=== PATIENT | male | born 1985 | race Caucasian/White ===

== ENCOUNTER 2019-11-16 14:20 | Emergency (ER) | payer OTHER, SELFPAY ==
[2019-11-16 14:31] VITALS: BP 132/73; PULSE 77; RESP 16; TEMP 37.7; O2SAT 99
--- NOTE | 2019-11-16 14:33 | ED.DENTAL ---
HPI - Dental/Oral General Chief complaint: Dental/Oral Stated complaint: Tooth pain Time Seen by Provider: 11/16/19 14:37 Source: patient and RN notes reviewed History of Present Illness HPI Narrative: Patient is a 34-year-old male who presents the urgent care with complaints of dental pain. Patient states that 2 days ago he bit down on something and broke off the lower right tooth. Patient states that he has had a bad taste in his mouth with a little bit of nausea but otherwise denies any fever or vomiting. Patient has had 26 teeth pulled in the past and will follow-up for this tooth as well. No other acute complaints. No acute distress noted. Patient read the plan of care. Related Data Allergies Allergy/AdvReac Type Severity Reaction Status Date / Time ketorolac Allergy Intermediate Weakness Verified 06/08/16 16:31 Bleach (Sodium Hypochlorite) Allergy Unknown Verified 03/26/15 14:18 ibuprofen Allergy Unknown Verified 03/26/15 14:18 No Known Allergies Allergy Unknown Unverified 01/30/19 13:18 No Known Allergies Allergy Uncoded 01/30/19 13:18 Review of Systems Review of Systems: Narrative: CONSTITUTIONAL: Denies fever, chills, or sweats. EYES: Denies visual changes, redness, or discharge. ENT: Denies rhinorrhea, congestion, sore throat, or otalgia. Reports of lower right dental pain CARDIOVASCULAR: Denies chest pain, palpitations, or edema. RESPIRATORY: Denies cough or dyspnea. GASTROINTESTINAL: Denies abdominal pain, nausea, vomiting, or diarrhea. GENITOURINARY: Denies dysuria or hematuria. SKIN: Denies rash or itching. MUSCULOSKELETAL: Denies back pain, joint pain, or myalgia. NEUROLOGIC: Denies headache, numbness, or weakness. All other systems reviewed are negative, except as documented in HPI. [facility] Family History Family History (Updated 12/13/13 @ 07:13 by DOCTOR UNKNOWN) Father Family history of lung cancer Family history of heart disease in male family member before age 55 Other Cerebrovascular accident Family history of malignant neoplasm Social History Social History Smoking status: Never smoker Alcohol intake: never Comments At the time of my signature, I reviewed and agree with the nursing past medical, surgical, social, and family history. There is no relevant family history pertinent to the patient complaint. Exam Narrative: Exam Narrative: GENERAL: This is a well-nourished, well-developed patient, in no apparent distress. HEAD: normocephalic, atraumatic. EYES: PERRL. Sclera clear/white. Vision is grossly intact. EARS: External ears normal NOSE: External nose normal with no obvious nasal discharge, nares without redness, no rhinorrhea. THROAT: Mucous membranes moist, posterior pharynx clear. DENTAL: Lower right first premolar notably avulsed with large caries and mild surrounding erythema along the gumline. NECK: Neck supple SKIN: warm, intact with no suspicious lesions or rash, good texture and turgor. NEURO: awake, alert, and oriented to person, place and time. There were no obvious focal neurologic abnormalities. EXTREMITIES: No clubbing, cyanosis, or edema. Course Vital Signs Vital signs: Vital Signs Temperature 99.8 F H 11/16/19 14:31 Pulse Rate 77 11/16/19 14:31 Respiratory Rate 16 11/16/19 14:31 Blood Pressure 132/73 11/16/19 14:31 Pulse Oximetry 99 11/16/19 14:31 Temperature 99.8 F H 11/16/19 14:31 Pulse Rate 77 11/16/19 14:31 Respiratory Rate 16 11/16/19 14:31 Blood Pressure 132/73 11/16/19 14:31 Pulse Oximetry 99 11/16/19 14:31 Reviewed MDM - Dental/Oral MDM Narrative Medical decision making narrative: Advised the patient to complete oral antibiotic regimen as prescribed. Use Tylenol as needed for pain. May use ice to the lower jaw as needed for comfort. If you develop any severe facial swelling associated with fever, nausea, vomiting?go to the emergency room. Follow-up at the dental clinic for further evaluation and treatmen
== END 2019-11-16 14:54 | disposition home or self-care (01) ==
PROVIDERS: Emergency Provider Nurse Practitioner Family; PCP Internal Medicine
DX: K04.7 Periapical abscess without sinus (principal); K02.9 Dental caries, unspecified
CPT/HCPCS: 99213; G0463

== ENCOUNTER 2019-11-26 06:03 | Emergency (ER) | payer OTHER, SELFPAY ==
[2019-11-26 06:05] VITALS: BP 135/77; PULSE 74; RESP 15; TEMP 36.3; O2SAT 100
--- NOTE | 2019-11-26 06:23 | ED.MALEGU ---
HPI - Male Genitourinary General Chief complaint: Urogenital-Male <Julia Langford MD - Last Filed: 11/29/19 07:35> Stated complaint: Difficulty Urinating <Julia Langford MD - Last Filed: 11/29/19 07:35> Time Seen by Provider: 11/26/19 06:06 <Julia Langford MD - Last Filed: 11/29/19 07:35> History of Present Illness HPI Narrative: Patient presents to the ED with the feeling that he has incomplete emptying when he goes to urinate. He says is difficult for him to urinate. There is no pain with urination. He denies risk of sexually transmitted disease. He has not been sick. He has a history of left ACL knee repair. Smokes cigarettes and smokes marijuana, does not drink alcohol. 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 <Julia Langford MD - Last Filed: 11/29/19 07:35> Onset (ago): hour(s) <Julia Langford MD - Last Filed: 11/29/19 07:35> Duration: constant <Julia Langford MD - Last Filed: 11/29/19 07:35> Location: abdomen (Pelvis and bladder) <Julia Langford MD - Last Filed: 11/29/19 07:35> Severity: moderate <Julia Langford MD - Last Filed: 11/29/19 07:35> Relieving factors: none <Julia Langford MD - Last Filed: 11/29/19 07:35> Exacerbating factors: none <Julia Langford MD - Last Filed: 11/29/19 07:35> Related Data Home medications: Home Medications Medication Instructions Recorded Confirmed No Home Medications 11/26/19 11/26/19 <Julia Langford MD - Last Filed: 11/29/19 07:35> Allergies/Adverse reactions: Allergies Allergy/AdvReac Type Severity Reaction Status Date / Time ketorolac Allergy Intermediate Weakness Verified 11/26/19 06:09 Bleach (Sodium Hypochlorite) Allergy Unknown Hives Verified 11/26/19 06:09 <Julia Langford MD - Last Filed: 11/29/19 07:35> Review of Systems Review of Systems: Narrative: CONSTITUTIONAL: Denies fever, chills, or sweats. EYES: Denies visual changes, redness, or discharge. ENT: Denies rhinorrhea, congestion, sore throat, or otalgia. CARDIOVASCULAR: Denies chest pain, palpitations, or edema. RESPIRATORY: Denies cough or dyspnea. GASTROINTESTINAL: Denies abdominal pain, nausea, vomiting, or diarrhea. GENITOURINARY: Denies dysuria or hematuria. Has a feeling that he cannot empty his bladder. SKIN: Denies rash or itching. MUSCULOSKELETAL: Denies back pain, joint pain, or myalgia. NEUROLOGIC: Denies headache, numbness, or weakness. <Julia Langford MD - Last Filed: 11/29/19 07:35> All systems reviewed & are unremarkable except as noted in HPI and below <Julia Langford MD - Last Filed: 11/29/19 07:35> PMFSH Past Medical History Medical History: Medical History Abnormal urination Smoking <Julia Langford MD - Last Filed: 11/29/19 07:35> Surgical History Surgical History: Surgical History (Updated 11/26/19 @ 06:25 by Julia Langford MD) History of repair of ACL <Julia Langford MD - Last Filed: 11/29/19 07:35> Family History Family History: Family History (Updated 12/13/13 @ 07:13 by DOCTOR UNKNOWN) Father Family history of lung cancer Family history of heart disease in male family member before age 55 Other Cerebrovascular accident Family history of malignant neoplasm <Julia Langford MD - Last Filed: 11/29/19 07:35> Social History Social History: Social History Smoking status: Never smoker Alcohol intake: never Gender identity (if verbalized by the patient): Male <Julia Langford MD - Last Filed: 11/29/19 07:35> Exam Narrative: Exam Narrative: GENERAL: Well-appearing, well-nourished, and in no acute distress. HEAD: Normocephalic, atraumatic. EYES: PERRLA and EOMI. ENT: Nares clear, no rhinorrhea or epistaxis. Mucous membranes moist. NECK: Supple. CHEST: Clear to auscultation. No respiratory distress. HEART: Regular rate and rhythm. No murmur heard. Normal peripheral pulses. ABDOMEN: Soft, nontend
[2019-11-26 06:47] LABS: Basophils Percent Auto 0.5 % (0.2-1.2); Eosinophils Absolute Auto 0.2 K/mm3 (0-0.3); Eosinophils Percent Auto 2.7 % (0-4.4); Hemoglobin 14.4 g/dL (14.0-18.0); Immature Granulocyte Absolute 0.04 K/mm3 (0.00-0.031); Immature Granulocyte Percent A 0.5 % (0-0.5); Lymphocytes Absolute Auto 1.72 K/mm3 (0.9-3.2); Lymphocytes Percent Auto 23.2 % (18.3-44.2); Mean Corpuscular HGB Conc 33.5 g/dl (32-36); Mean Corpuscular Hemoglobin 32.7 pg (26-34); Mean Corpuscular Volume 97.5 fl (80-100); Mean Platelet Volume 9.8 fl (7.4-10.4); Monocytes Absolute Auto 0.6 K/mm3 (0.1-0.6); Monocytes Percent Auto 8.5 % (2.6-8.5); Neutrophils Absolute Auto 4.8 K/mm3 (1.3-6.7); Neutrophils Percent Auto 64.6 % (45.5-73.1); Platelet Count Result 248 k/mm3 (150-375); Red Blood Count 4.41 M/mm3 (4.6-6.20); Red Cell Distribution Width 12.7 % (11.5-14.5); White Blood Count 7.4 K/mm3 (4.5-10.0)
[2019-11-26 06:59] LABS: Add Urine Microscopic? NO; Appearance Urine Clear (Clear); Bilirubin Urine Negative (Negative); Blood Urine Negative (Negative); Color Urine Yellow (Yellow); Glucose Urine UA Negative (Negative); Ketones Urine Negative (Negative); Leukocyte Esterase Ur Negative LEU/UL (Negative); Nitrate Urine Negative (Negative); Protein Urine Negative (Negative); Specific Grav Ur 1.015 (1.001-1.035); Urobilinogen Urine Negative mg/dL (<2.0)
[2019-11-26 07:04] LABS: Alanine Aminotransferase 16 U/L (4-50); Alkaline Phosphatase 69 U/L (38-126); Anion Gap 5 mmol/L (8-16); Aspartate Amino Transferase 22 U/L (17-59); Bilirubin,Total 0.2 mg/dL (0.2-1.3); Blood Urea Nitrogen 14 mg/dL (9-20); Calcium 8.7 mg/dL (8.4-10.2); Carbon Dioxide 28 mmol/L (22-30); Chloride 106 mmol/L (98-107); Estimated CRCL calculation 111 ml/min; Estimated Glomerular Filt Rate > 60; Glucose 92 mg/dL (75-110); Potassium 4.2 mmol/L (3.4-5.0); Sodium 139 mmol/L (137-145)
--- NOTE | 2019-11-26 07:09 | PC.NURSE ---
Report given to VAMSHI Bob.
== END 2019-11-26 07:16 | disposition home or self-care (01) ==
PROVIDERS: Emergency Medicine; Emergency Provider Emergency Medicine; PCP Internal Medicine
DX: R39.14 Feeling of incomplete bladder emptying (principal); F17.210 Nicotine dependence, cigarettes, uncomplicated
CPT/HCPCS: 36415; 80053; 81003; 85025; 99283

== ENCOUNTER 2020-05-27 16:30 | Emergency (ER) | payer OTHER, SELFPAY ==
--- NOTE | ~2020-05-27 | XR_ITS ---
EXAMINATION: XR abdomen/kub 1V DATE: 05/27/2020 17:05 INDICATION: Diffuse abdominal pain TECHNIQUE: A supine view of the abdomen on 2 radiographs was obtained. COMPARISON: CT dated 09/07/2018 FINDINGS: Moderate amount of stool scattered throughout the colon. No dilated gas-filled loops of bowel to sugg est obstruction. A few phleboliths in the pelvis. Visualized lung bases are clear. Bones are unremark able. IMPRESSION: 1. Normal bowel gas pattern. Reviewed, dictated and finalized at location A. 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
[2020-05-27 16:50] VITALS: BP 146/86; PULSE 108; RESP 16; TEMP 35.7; O2SAT 98
--- NOTE | 2020-05-27 17:00 | ED.ABDPAIN ---
HPI - Abdominal Pain General Chief Complaint: Abdominal Pain Stated Complaint: Abdominal pain Time Seen by Provider: 05/27/20 17:04 Source: patient and RN notes reviewed Mode of arrival: ambulatory Limitations: no limitations History of Present Illness HPI narrative: 35-year-old male presents with concern for abdominal pain, difficulty passing stool. Reports approximately 1 week ago he started having difficulty passing stool, reports a sensation of needing to defecate however the stool would not come out, he has to digitally remove stool. Reports abdominal pain has been increasingly worsening and spreading throughout the week, reports his urine output has decreased, he has dysuria and malodorous urine. Reports he is eating a normal diet, and drinking extra fluids. He denies fever, diarrhea. Reports he forced himself to vomit today in an attempt to relieve his abdominal pain. He denies any history of abdominal surgeries, past problems with his abdomen. Reports he is tried warm baths for pain relief MD elicited complaint: abdominal pain Related Data Home Medications Medication Instructions Recorded Confirmed No Home Medications 11/26/19 11/26/19 Allergies Allergy/AdvReac Type Severity Reaction Status Date / Time ketorolac Allergy Intermediate Weakness Verified 05/27/20 16:44 Bleach (Sodium Hypochlorite) Allergy Unknown Hives Verified 05/27/20 16:44 Review of Systems Review of Systems: Narrative: CONSTITUTIONAL: Denies malaise, chills, sweats, or fever. CARDIOVASCULAR: Denies chest pain, palpitations, or edema. RESPIRATORY: Denies cough or dyspnea. GASTROINTESTINAL: Reports generalized abdominal pain, constipation, vomiting. Denies nausea, diarrhea, bloody, or mucous stools. GENITOURINARY: Reports dysuria decreased urine frequency, foul odor. Denies hematuria. MUSCULOSKELETAL: Denies myalgia. All systems reviewed & are unremarkable except as noted in HPI and below PMFSH Past Medical History Medical History Abnormal urination Smoking Surgical History Surgical History (Updated 11/30/19 @ 08:03 by Douglas Patel DO) History of repair of ACL Family History Family History (Updated 12/13/13 @ 07:13 by DOCTOR UNKNOWN) Father Family history of lung cancer Family history of heart disease in male family member before age 55 Other Cerebrovascular accident Family history of malignant neoplasm Social History Social History Smoking status: Never smoker Alcohol intake: never Gender identity (if verbalized by the patient): Male Comments At time of signature, agree with nursing past medical, surgical, social and family history. There is no relevant family history pertinent to the presenting complaint Exam Narrative: Exam Narrative: GENERAL: Well-appearing, well-nourished, and in no acute distress. HEAD: Normocephalic, atraumatic. EYES: PERRLA, conjunctivae clear, and EOMI. ENT: Nares clear. Mucous membranes moist. NECK: Supple. No lymphadenopathy CHEST: Speaks in full sentences. No respiratory distress. HEART: Regular rate and rhythm. ABDOMEN: Soft, flat, nondistended. Guarding, right upper quadrant, right lower quadrant, periumbilical tenderness. No rebound tenderness, or rigid. No pulsatilla masses. Bowel sounds hypoactive in all four quadrants. No organomegaly. Negative Garcia?s sign. No Supra public tenderness or distension. Good femoral pulses bilaterally. No hernia noted. No scars or surface trauma. No testicular erythema, edema, tenderness SKIN: Warm, dry, no rash. NEURO: Alert and oriented x3. PSYCH: Normal mood and affect Course Course Emergency Course: Patient is aware of, understands and agrees to reasons to be seen in the emergency department. Offered EMS transfer, patient first transfer via private vehicle, patient is stable for transfer via private vehicle. Patient agrees to proceed directly to the emergency department.
== END 2020-05-27 17:23 | disposition short-term general hospital (02) ==
PROVIDERS: Emergency Provider Nurse Practitioner
DX: R10.84 Generalized abdominal pain (principal)
CPT/HCPCS: 74018; 81003; 99213; G0463

== ENCOUNTER 2020-05-27 17:55 | Emergency (ER) | payer OTHER, SELFPAY ==
--- NOTE | ~2020-05-27 | CT_ITS ---
EXAMINATION: CT abdomen pelvis w con DATE: 05/27/2020 19:31 INDICATION: Abdominal pain TECHNIQUE: Computed tomography (CT) of the abdomen and pelvis was performed with 100 mL Omnipaque-350 intravenous contrast. Automated exposure control and iterative reconstruction technique were employe d. The dose-length product was 250.34 mGy-cm. COMPARISON: 09/07/2018 FINDINGS: Lung bases are clear. Heart size is normal. No pericardial or pleural effusion. Liver, gallbladder, s pleen, pancreas, bilateral adrenal glands and kidneys are normal. Suggestion of diffuse mild colonic wall thickening suspicious for colitis. No bowel obstruction. Small bowel and appendix are normal. Bl adder is normal. No free intraperitoneal gas or fluid. No pathologically enlarged abdominal or pelvic lymphadenopathy. Mild likely physiologic anterior wedging at T11 and T12. IMPRESSION: 1. Diffuse mild colonic wall thickening suspicious for colitis which could be infectious, inflammator y or less likely given age and distribution, ischemic in etiology. Reviewed, dictated and finalized at location A. 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 Diffuse mild colonic wall thickening suspicious for colitis which could be i nfectious, inflammatory or less likely given age and distribution, ischemic in etiology.
[2020-05-27 18:02] VITALS: BP 135/86; PULSE 130; RESP 18; TEMP 37.4; O2SAT 100
[2020-05-27 18:15] LABS: Basophils Percent Auto 0.3 % (0.2-1.2); Eosinophils Percent Auto 0.1 % (0-4.4); Hematocrit 49.2 % (42.0-52.0); Hemoglobin 16.5 g/dL (14.0-18.0); Immature Granulocyte Absolute 0.04 K/mm3 (0.00-0.031); Immature Granulocyte Percent A 0.4 % (0-0.5); Lymphocytes Percent Auto 10.1 % (18.3-44.2); Mean Corpuscular HGB Conc 33.5 g/dl (32-36); Mean Corpuscular Hemoglobin 32.3 pg (26-34); Mean Corpuscular Volume 96.3 fl (80-100); Mean Platelet Volume 9.7 fl (7.4-10.4); Monocytes Absolute Auto 0.4 K/mm3 (0.1-0.6); Monocytes Percent Auto 3.3 % (2.6-8.5); Neutrophils Absolute Auto 9.4 K/mm3 (1.3-6.7); Neutrophils Percent Auto 85.8 % (45.5-73.1); Platelet Count Result 292 k/mm3 (150-375); Red Blood Count 5.11 M/mm3 (4.6-6.20); Red Cell Distribution Width 12.3 % (11.5-14.5); White Blood Count 10.9 K/mm3 (4.5-10.0)
[2020-05-27 18:22] LABS: Add Urine Microscopic? YES; Appearance Urine Clear (Clear); Bilirubin Urine Negative (Negative); Blood Urine Negative (Negative); Color Urine Yellow (Yellow); Glucose Urine UA Negative (Negative); Ketones Urine Negative (Negative); Leukocyte Esterase Ur Negative LEU/UL (Negative); Mucus Urine Heavy /lpf; Nitrate Urine Negative (Negative); Protein Urine 2+ mg/dL (Negative); RBC Urine 0-2 /hpf (0-2); Squamous Epithelial Cell Urine Rare /hpf (Few); Urobilinogen Urine Negative mg/dL (<2.0); WBC Urine 0-3 /hpf
[2020-05-27 18:24] LABS: Specific Grav Ur 1.031 (1.001-1.035)
[2020-05-27 18:26] LABS: Alanine Aminotransferase 17 U/L (4-50); Albumin Level 4.8 g/dL (3.5-5.1); Alkaline Phosphatase 92 U/L (38-126); Anion Gap 8 mmol/L (8-16); Aspartate Amino Transferase 23 U/L (17-59); Bilirubin,Total 0.6 mg/dL (0.2-1.3); Blood Urea Nitrogen 8 mg/dL (9-20); Calcium 9.9 mg/dL (8.4-10.2); Carbon Dioxide 30 mmol/L (22-30); Chloride 104 mmol/L (98-107); Estimated CRCL calculation 107 ml/min; Estimated Glomerular Filt Rate > 60; Glucose 122 mg/dL (75-110); Lipase 15 U/L (23-300); Potassium 4.2 mmol/L (3.4-5.0); Sodium 142 mmol/L (137-145)
--- NOTE | 2020-05-27 18:55 | ED.ABDPAIN ---
HPI - Abdominal Pain General Chief Complaint: Abdominal Pain Stated Complaint: abd pain Time Seen by Provider: 05/27/20 18:45 Source: patient History of Present Illness HPI narrative: Patient is a 35 y/o male complaining of right sided abdominal pain for 1 week. He describes his pain as burning and sharp. He rates his pain as 3/10. There is no pain radiation. He had one episode of vomiting. He has some difficulty with bowel movement at times. Related Data Allergies Allergy/AdvReac Type Severity Reaction Status Date / Time ketorolac Allergy Intermediate Weakness Verified 05/27/20 18:59 Bleach (Sodium Hypochlorite) Allergy Unknown Hives Verified 05/27/20 18:59 Review of Systems Constitutional: Constitutional: Denies chills, Denies fever(s), Denies headache(s) and Denies weakness Eyes: Eyes: Denies blurry vision ENT: Denies headache(s) and Denies neck pain Cardiovascular: Cardiovascular: Denies chest pain and Denies dyspnea Respiratory: Respiratory: Denies cough and Denies dyspnea Gastrointestinal: Gastrointestinal: Reports abdominal pain, Denies diarrhea, Reports nausea and Reports vomiting Genitourinary: Genitourinary: Denies hematuria and Denies dysuria Musculoskeletal: Musculoskeletal: Denies back pain and Denies neck pain Neurologic: Denies headache(s) and Denies weakness PMFSH Past Medical History Medical History Abnormal urination Smoking Surgical History Surgical History History of repair of ACL Family History Family History Father Family history of lung cancer Family history of heart disease in male family member before age 55 Other Cerebrovascular accident Family history of malignant neoplasm Social History Social History Smoking status: Never smoker Alcohol intake: never Gender identity (if verbalized by the patient): Male Exam Const: General: no acute distress and well developed Orientation/consciousness: oriented to person, oriented to place, oriented to time and patient oriented x3 HENMT: Head: normocephalic Ears: external ears normal General nose exam: Normal external nose present Eyes: General: appearance normal, both eyes and all related structures Conjunctivae: conjunctivae normal Neck: Neck: normal visual inspection and full ROM Chest: Chest palpation & inspection: normal inspection of the chest and no tenderness Resp: Effort & Inspection: normal respiratory effort Auscultation: clear to auscultation bilaterally Cardio: Rate: tachycardic Rhythm: regular rhythm GI: GI Palp: Yes abdominal tenderness (right upper quadrant) and Yes Soft to palpation Skin: General skin exam: normal color and turgor normal Neuro: General: oriented to person, oriented to place, oriented to time and patient oriented x3 Cognition (Neuro): normal cognition Extrem: General: normal to inspection, full ROM and no pedal edema Psych: Appearance: grossly normal Mental Status: mental status grossly normal Affect: normal affect Course Reevaluation(s) Reevaluation #1: Rechecked. Discussed with patient about labs and CT results. Offered patient admission for IV antibiotics. Patient declined and wants to be discharged. Date: 05/27/20 Time: 21:15 Vital Signs Vital signs: Vital Signs Temperature 37.4 C 05/27/20 18:02 Pulse Rate 130 H 05/27/20 18:02 Respiratory Rate 18 05/27/20 18:02 Blood Pressure 135/86 05/27/20 18:02 Pulse Oximetry 100 05/27/20 18:02 Temperature 36.8 C 05/27/20 21:49 Pulse Rate 96 05/27/20 21:49 Respiratory Rate 16 05/27/20 21:49 Blood Pressure 134/70 05/27/20 21:49 Pulse Oximetry 100 05/27/20 21:49 MDM - Abdominal Pain Lab Data Result diagrams: 05/27/20 18:09 05/27/20 18:09 Labs: Lab Results 05/27/20 05/27/20 05/27/20 Range/Units 18
[2020-05-27] MEDS: SODIUM CHLORIDE 0.9% IV 1,000 ML 999 ML IV CONT (19:08)
[2020-05-27] MEDS: DICYCLOMINE HCL INJ 20 MG/2 ML VIAL IM (19:09)
[2020-05-27] MEDS: ONDANSETRON INJ 4 MG/2 ML VIAL IV PUSH (20:22)
--- NOTE | 2020-05-27 20:28 | ECG_ITS ---
Measurements Intervals [place] Rate: 68 P: -26 MD: 121 QRS: 72 QRSD: 105 T: 59 QT: 355 QTc: 380 Interpretive Statements SINUS OR ECTOPIC ATRIAL RHYTHM BORDERLINE ST ABNORMALITY- LATERAL LEADS BASELINE ARTIFACT- AVR, AVL, AVF, V1 ABNORMAL ECG Electronically Signed On 05-28-2020 7:04:26 [employer]ENCH REPAIR TECHNICIAN by Rene Tee D.O.
[2020-05-27] MEDS: fentaNYL CITRATE INJ (*CRX) 100 MCG/2 ML VIAL 25 MCG IV PUSH (20:58)
[2020-05-27 21:49] VITALS: BP 134/70; PULSE 96; RESP 16; TEMP 36.8; O2SAT 100
[2020-05-27] MEDS: CIPROFLOXACIN 500 MG TAB PO (21:50)
[2020-05-27] MEDS: metroNIDAZOLE 250 MG TABLET 500 MG PO (21:50)
== END 2020-05-27 22:02 | disposition home or self-care (01) ==
PROVIDERS: Emergency Medicine; Emergency Provider Emergency Medicine
DX: K52.9 Noninfective gastroenteritis and colitis, unspecified (principal); F17.210 Nicotine dependence, cigarettes, uncomplicated
CPT/HCPCS: 36415; 74018; 74177; 80053; 81001; 81003; 83690; 85025; 93005; 96361; 96372; 96374; 96375; 99284; A9270; J0500; J2405; J3010; J7030; Q9967

== ENCOUNTER 2020-05-28 02:33 | Emergency (ER) | payer OTHER, SELFPAY ==
[2020-05-28 02:33] VITALS: BP 138/83; PULSE 98; RESP 20; TEMP 36.9; O2SAT 97
--- NOTE | 2020-05-28 02:44 | ED.NAVMDI ---
HPI - Nausea/Vomiting/Diarrhea General Chief complaint: Nausea/Vomiting/Diarrhea Stated complaint: emesis with blood Time Seen by Provider: 05/28/20 02:41 Source: patient Mode of arrival: ambulatory Limitations: no limitations History of Present Illness HPI Narrative: Patient is a 35-year-old male complaining of nausea vomiting that started tonight. Patient was vomitus nonbilious, blood tinge vomitus x1 tonight. Patient was seen here earlier tonight for the same complaint, was diagnosed with colitis. He denies any chest pain, shortness of breath, abdominal pain, fever or chills. Related Data Allergies Allergy/AdvReac Type Severity Reaction Status Date / Time ketorolac Allergy Intermediate Weakness Verified 05/27/20 18:59 Bleach (Sodium Hypochlorite) Allergy Unknown Hives Verified 05/27/20 18:59 Review of Systems Review of Systems: All systems reviewed & are unremarkable except as noted in HPI and below Constitutional: Constitutional: Denies body ache(s), Denies chills, Denies excessive sweating, Denies fatigue, Denies fever(s), Denies headache(s), Denies lethargy, Denies malaise, Denies weakness and Denies weight loss Eyes: Eyes: Denies blurry vision, Denies change in vision and Denies loss of vision ENT: Denies dizziness, Denies ear discharge, Denies headache(s), Denies lip swelling, Denies epistaxis, Denies nasal congestion, Denies neck pain, Denies throat swelling and Denies tongue swelling Cardiovascular: Cardiovascular: Denies chest pain, Denies chest pain at rest, Denies chest pain with activity, Denies diaphoresis, Denies rapid heart rate, Denies edema, Denies irregular heart rhythm, Denies lightheadedness, Denies palpitations, Denies dyspnea and Denies dyspnea on exertion Respiratory: Respiratory: Denies chest congestion, Denies cough, Denies hemoptysis, Denies dyspnea and Denies dyspnea on exertion Gastrointestinal: Gastrointestinal: Denies abdominal pain, Denies melena, Denies hematochezia and Denies diarrhea Musculoskeletal: Musculoskeletal: Denies abnormal gait, Denies deformity, Denies joint swelling, Denies limited range of motion, Denies neck pain and Denies numbness Neurologic: Denies Abnormal speech present, Denies abnormal gait, Denies confusion, Denies dizziness, Denies headache(s), Denies focal weakness, Denies loss of vision, Denies numbness, Denies Other visual disturbances, Denies Sensory deficit (Neuro) and Denies weakness Psychiatric: Psychiatric: Denies confusion, Denies depression, Denies auditory hallucinations, Denies homicidal ideation and Denies suicidal ideation Endocrine: Endocrine: Denies cold intolerance, Denies excessive sweating, Denies fatigue, Denies heat intolerance and Denies palpitations Hematologic/Lymphatic: Hematologic/Lymphatic: Denies easy bleeding and Denies easy bruising Allergic/Immunologic: Allergic/Immunologic: Denies lip swelling, Denies throat swelling and Denies tongue swelling PMFSH Past Medical History Medical History Abnormal urination Smoking Surgical History Surgical History History of repair of ACL Family History Family History Father Family history of lung cancer Family history of heart disease in male family member before age 55 Other Cerebrovascular accident Family history of malignant neoplasm Social History Social History Smoking status: Never smoker Alcohol intake: never Gender identity (if verbalized by the patient): Male Exam Const: General: cooperative, healthy appearing, comfortable, no acute distress, well developed, alert and awake; No confusion Orientation/consciousness: oriented to person, oriented to place, oriented to time, patient oriented x3 and No confusion Limitations: no limitations HENMT: Head: normal to inspection, normocephalic and atraumatic Ears:
[2020-05-28] MEDS: SODIUM CHLORIDE 0.9% IV 1,000 ML 999 ML IV CONT (02:52)
[2020-05-28] MEDS: ONDANSETRON INJ 4 MG/2 ML VIAL IV PUSH (03:01)
[2020-05-28] MEDS: PANTOPRAZOLE SODIUM IV 40 MG VIAL IV PUSH (03:01)
[2020-05-28 03:12] VITALS: TEMP 37.5
[2020-05-28 03:13] LABS: Basophils Percent Auto 0.1 % (0.2-1.2); Hematocrit 46.2 % (42.0-52.0); Hemoglobin 16.1 g/dL (14.0-18.0); Immature Granulocyte Absolute 0.05 K/mm3 (0.00-0.031); Immature Granulocyte Percent A 0.4 % (0-0.5); Lymphocytes Absolute Auto 1.61 K/mm3 (0.9-3.2); Lymphocytes Percent Auto 11.4 % (18.3-44.2); Mean Corpuscular HGB Conc 34.8 g/dl (32-36); Mean Corpuscular Hemoglobin 33.3 pg (26-34); Mean Corpuscular Volume 95.7 fl (80-100); Monocytes Absolute Auto 0.7 K/mm3 (0.1-0.6); Monocytes Percent Auto 5.2 % (2.6-8.5); Neutrophils Absolute Auto 11.7 K/mm3 (1.3-6.7); Neutrophils Percent Auto 82.9 % (45.5-73.1); Platelet Count Result 282 k/mm3 (150-375); Red Blood Count 4.83 M/mm3 (4.6-6.20); Red Cell Distribution Width 12.4 % (11.5-14.5); White Blood Count 14.1 K/mm3 (4.5-10.0)
[2020-05-28 03:18] LABS: Alanine Aminotransferase 15 U/L (4-50); Albumin Level 4.5 g/dL (3.5-5.1); Alkaline Phosphatase 85 U/L (38-126); Anion Gap 8 mmol/L (8-16); Aspartate Amino Transferase 26 U/L (17-59); Bilirubin,Total 0.7 mg/dL (0.2-1.3); Blood Urea Nitrogen 9 mg/dL (9-20); Calcium 9.2 mg/dL (8.4-10.2); Carbon Dioxide 27 mmol/L (22-30); Chloride 105 mmol/L (98-107); Estimated CRCL calculation 107 ml/min; Estimated Glomerular Filt Rate > 60; Glucose 113 mg/dL (75-110); Lipase 24 U/L (23-300); Potassium 3.9 mmol/L (3.4-5.0); Sodium 140 mmol/L (137-145)
[2020-05-28 03:29] LABS: Lactic Acid Reflex 1.1 mmol/L (0.7-2.1)
[2020-05-28 04:00] VITALS: BP 142/76; PULSE 87; RESP 16; O2SAT 99
== END 2020-05-28 04:02 | disposition home or self-care (01) ==
PROVIDERS: Emergency Provider Emergency Medicine
DX: R11.2 Nausea with vomiting, unspecified (principal)
CPT/HCPCS: 36415; 80053; 83605; 83690; 85025; 96361; 96374; 96375; 99284; C9113; J2405; J7030

== ENCOUNTER 2020-11-21 10:24 | Emergency (ER) | payer OTHER, SELFPAY ==
[2020-11-21 10:35] VITALS: BP 145/89; PULSE 85; RESP 20; TEMP 36.9; O2SAT 99
--- NOTE | 2020-11-21 11:00 | ED.ABDPAIN ---
HPI - Abdominal Pain General Chief Complaint: Abdominal Pain Stated Complaint: abd pain Time Seen by Provider: 11/21/20 10:42 Source: patient and RN notes reviewed Mode of arrival: ambulatory Limitations: no limitations History of Present Illness HPI narrative: Patient presents today complaining of some periabdominal wall pain this morning with 3 episodes of diarrhea. Patient has history of ulcerative colitis and has a colonoscopy scheduled for December 13. Currently rates his pain 4/10. Patient started a new job and last night he ate pork sandwich that he had never eaten before. He woke up this morning feeling unwell like he may have the flu with this abdominal discomfort and diarrhea. He came in today wanting reassurance that he may have eaten something bad and this pain was not related to his ulcerative colitis. He denies any blood in his stool. MD elicited complaint: abdominal pain Related Data Home Medications Medication Instructions Recorded Confirmed No Home Medications 11/21/20 11/21/20 Allergies Allergy/AdvReac Type Severity Reaction Status Date / Time ketorolac Allergy Intermediate Weakness Verified 05/27/20 18:59 Bleach (Sodium Hypochlorite) Allergy Unknown Hives Verified 05/27/20 18:59 Review of Systems Review of Systems: CONSTITUTIONAL: Denies body aches, fever, chills, or sweats. EYES: Denies visual changes, redness, or discharge. ENT: Denies rhinorrhea, congestion, sore throat, or otalgia. CARDIOVASCULAR: Denies chest pain, palpitations, or edema. RESPIRATORY: Denies cough or dyspnea. GASTROINTESTINAL: Denies nausea, vomiting. + Abdominal pain, diarrhea GENITOURINARY: Denies dysuria or hematuria. SKIN: Denies rash, itching, or wounds. MUSCULOSKELETAL: Denies back pain, joint pain, or myalgia. NEUROLOGIC: Denies headache, numbness, tingling, or weakness. PSYCH: Denies depression or anxiety. [facility] Past Medical History Medical History (Updated 11/21/20 @ 11:08 by Liliana Mercado, [facility], ) Abnormal urination Smoking Ulcerative colitis Surgical History Surgical History History of repair of ACL Family History Family History Father Family history of lung cancer Family history of heart disease in male family member before age 55 Other Cerebrovascular accident Family history of malignant neoplasm Social History Social History Smoking status: Never smoker Alcohol intake: never Gender identity (if verbalized by the patient): Male Comments At time of signature, I have reviewed and agree with nursing past medical, surgical, social and family history unless otherwise noted. Please see nursing chart for further information. There is no relevant family history pertinent to the presenting complaint Exam Narrative: GENERAL: Well-appearing, well-nourished, and in no acute distress. HEAD: Normocephalic, atraumatic. EYES: EOMI. No redness or drainage. Conjunctivae normal. ENT: Mucous membranes pink and moist. NECK: Normal AROM. Supple. No lymphadenopathy. CHEST: No respiratory distress. Clear to auscultation. HEART: Regular rate and rhythm. No murmur appreciated. Normal peripheral pulses. ABDOMEN: Soft, nondistended, normal active bowel sounds. Tenderness to left abdomen- patient states this is baseline for him. MUSCULOSKELETAL: No bony tenderness. EXTREMITIES: Normal range of motion. No edema. SKIN: Warm, dry, no rash. Capillary refill normal. Normal skin turgor. NEURO: No focal deficits. Alert and oriented x3. Gait steady. PSYCH: Normal affect. No signs of depression or anxiety. Course Vital Signs Vital signs: Vital Signs Temperature 98.4 F 11/21/20 10:35 Pulse Rate 85 11/21/20 10:35 Respiratory Rate 20 11/21/20 10:35 Blood Pressure 145/89 H 11/21/20 10:35 Pulse Oximetry 99 11/21/20 10:35
== END 2020-11-21 11:13 | disposition home or self-care (01) ==
PROVIDERS: Emergency Provider Nurse Practitioner
DX: R19.7 Diarrhea, unspecified (principal)
CPT/HCPCS: 99211; G0463

== ENCOUNTER 2020-12-21 14:27 | Emergency (ER) | payer OTHER, SELFPAY ==
--- NOTE | ~2020-12-21 | CT_ITS ---
EXAMINATION: CT abdomen pelvis w con DATE: 12/21/2020 15:22 INDICATION: Left abdominal pain. TECHNIQUE: Computed tomography (CT) of the abdomen and pelvis was performed with 100 mL Omnipaque 350 intravenous contrast. Automated exposure control and iterative reconstruction technique were employe d. The dose-length product was 244.73 mGy-cm. COMPARISON: CT abdomen and pelvis 05/27/2020 FINDINGS: The visualized portions of the lung bases demonstrate a 3 mm nodule in left lower lobe, lik meghan benign. No pleural effusion. The heart size is normal. No pericardial effusion. The liver, gallbl adder, spleen, pancreas, adrenal glands, and kidneys are normal. There are no dilated loops of bowel. The appendix is normal. There are no pathologically enlarged lymph nodes. There is no free intraperi toneal fluid. There is mild lumbar spondylosis. There is mild chronic anterior wedging of multiple lo wer thoracic vertebral bodies. IMPRESSION: 1. No etiology for the patient's symptoms. Reviewed, dictated and finalized at location A.
[2020-12-21 14:29] VITALS: BP 158/102; PULSE 67; RESP 18; TEMP 36.4; O2SAT 100
[2020-12-21 15:00] LABS: Basophils Percent Auto 0.2 % (0.2-1.2); Hematocrit 47.1 % (42.0-52.0); Hemoglobin 16.1 g/dL (14.0-18.0); Immature Granulocyte Absolute 0.03 K/mm3 (0.00-0.031); Immature Granulocyte Percent A 0.3 % (0-0.5); Lymphocytes Absolute Auto 0.54 K/mm3 (0.9-3.2); Lymphocytes Percent Auto 5.9 % (18.3-44.2); Mean Corpuscular HGB Conc 34.2 g/dl (32-36); Mean Corpuscular Hemoglobin 34.6 pg (26-34); Mean Corpuscular Volume 101.3 fl (80-100); Mean Platelet Volume 10.3 fl (7.4-10.4); Monocytes Absolute Auto 0.3 K/mm3 (0.1-0.6); Monocytes Percent Auto 2.7 % (2.6-8.5); Neutrophils Absolute Auto 8.4 K/mm3 (1.3-6.7); Neutrophils Percent Auto 90.9 % (45.5-73.1); Platelet Count Result 245 k/mm3 (150-375); Red Blood Count 4.65 M/mm3 (4.6-6.20); Red Cell Distribution Width 12.6 % (11.5-14.5); White Blood Count 9.2 K/mm3 (4.5-10.0)
[2020-12-21 15:04] LABS: Alanine Aminotransferase 24 U/L (4-50); Albumin Level 4.6 g/dL (3.5-5.1); Alkaline Phosphatase 95 U/L (38-126); Anion Gap 9 mmol/L (8-16); Aspartate Amino Transferase 31 U/L (17-59); Bilirubin,Total 0.9 mg/dL (0.2-1.3); Blood Urea Nitrogen 8 mg/dL (9-20); Calcium 9.2 mg/dL (8.4-10.2); Carbon Dioxide 23 mmol/L (22-30); Chloride 106 mmol/L (98-107); Estimated CRCL calculation 133 ml/min; Estimated Glomerular Filt Rate > 60; Glucose 131 mg/dL (65-110); Lipase 20 U/L (23-300); Sodium 138 mmol/L (137-145)
--- NOTE | 2020-12-21 15:05 | ED.GENADULT ---
HPI - General Adult General Chief complaint: Abdominal Pain Stated complaint: abd pain Time Seen by Provider: 12/21/20 14:37 Source: patient History of Present Illness HPI narrative: Patient is a 35 y/o male complaining of generalized abdominal pain starting yesterday. He describes his pain as sharp and rates it as 10/10. There is no alleviating or exacerbating factor. He has some vomiting and diarrhea. He thought perhaps he ate some bad food yesterday. Related Data Allergies Allergy/AdvReac Type Severity Reaction Status Date / Time ketorolac Allergy Intermediate Weakness Verified 12/21/20 14:38 Bleach (Sodium Hypochlorite) Allergy Unknown Hives Verified 12/21/20 14:38 Review of Systems Constitutional: Constitutional: Denies chills, Denies fever(s), Denies headache(s) and Denies weakness Eyes: Eyes: Denies blurry vision ENT: Denies headache(s) and Denies neck pain Cardiovascular: Cardiovascular: Denies chest pain and Denies dyspnea Respiratory: Respiratory: Denies cough and Denies dyspnea Gastrointestinal: Gastrointestinal: Reports abdominal pain, Reports diarrhea, Reports nausea and Reports vomiting Genitourinary: Genitourinary: Denies hematuria and Denies dysuria Musculoskeletal: Musculoskeletal: Denies back pain and Denies neck pain Neurologic: Denies headache(s) and Denies weakness PMFSH Past Medical History Medical History Abnormal urination Smoking Ulcerative colitis Surgical History Surgical History History of repair of ACL Family History Family History Father Family history of lung cancer Family history of heart disease in male family member before age 55 Other Cerebrovascular accident Family history of malignant neoplasm Social History Social History Smoking status: Never smoker Alcohol intake: never Gender identity (if verbalized by the patient): Male Exam Const: General: no acute distress and well developed Orientation/consciousness: oriented to person, oriented to place, oriented to time and patient oriented x3 HENMT: Head: normocephalic Ears: external ears normal General nose exam: Normal external nose present Eyes: General: appearance normal, both eyes and all related structures Conjunctivae: conjunctivae normal Neck: Neck: normal visual inspection and full ROM Chest: Chest palpation & inspection: normal inspection of the chest and no tenderness Resp: Effort & Inspection: normal respiratory effort Auscultation: clear to auscultation bilaterally Cardio: Rate: regular rate Rhythm: regular rhythm GI: GI Palp: No abdominal tenderness and Yes Soft to palpation Skin: General skin exam: normal color and turgor normal Neuro: General: oriented to person, oriented to place, oriented to time and patient oriented x3 Cognition (Neuro): normal cognition Extrem: General: normal to inspection, full ROM and no pedal edema Psych: Appearance: grossly normal Mental Status: mental status grossly normal Affect: normal affect Course Vital Signs Vital signs: Vital Signs Temperature 36.4 C 12/21/20 14:29 Pulse Rate 67 12/21/20 14:29 Respiratory Rate 18 12/21/20 14:29 Blood Pressure 158/102 H 12/21/20 14:29 Pulse Oximetry 100 12/21/20 14:29 Temperature 36.4 C 12/21/20 14:29 Pulse Rate 70 12/21/20 17:39 Respiratory Rate 18 12/21/20 17:39 Blood Pressure 155/90 H 12/21/20 17:39 Pulse Oximetry 100 12/21/20 17:39 Medical Decision Making Vital Signs Vital Signs: Vital Signs Temperature 36.4 C 12/21/20 14:29 Pulse Rate 67 12/21/20 14:29 Respiratory Rate 18 12/21/20 14:29 Blood Pressure 158/102 H 12/21/20 14:29 Pulse Oximetry 100 12/21/20 14:29 Temperature 36.4 C 12/21/20 14:29 Pulse Rate 70 12/21/20 17:39
[2020-12-21] MEDS: SODIUM CHLORIDE 0.9% IV 1,000 ML 999 ML IV CONT (15:06)
[2020-12-21] MEDS: METOCLOPRAMIDE HCL INJ 10 MG/2 ML VIAL IV PUSH (15:06)
[2020-12-21 15:11] LABS: Add Urine Microscopic? YES; Appearance Urine Clear (Clear); Bilirubin Urine Negative (Negative); Blood Urine Negative (Negative); Color Urine Yellow (Yellow); Glucose Urine UA Negative (Negative); Ketones Urine 2+ mg/dL (Negative); Leukocyte Esterase Ur Negative LEU/UL (Negative); Mucus Urine Rare /lpf; Nitrate Urine Negative (Negative); Protein Urine 1+ mg/dL (Negative); Specific Grav Ur 1.025 (1.001-1.035); Urobilinogen Urine Negative mg/dL (<2.0); WBC Urine 0-3 /hpf
[2020-12-21 15:47] LABS: CRP < 0.5 mg/dL (<1.0)
[2020-12-21 16:18] LABS: Erythrocyte Sedimentation Rate 4 mm/hr (0-20)
[2020-12-21] MEDS: DICYCLOMINE HCL INJ 20 MG/2 ML VIAL IM (16:33)
[2020-12-21 17:39] VITALS: BP 155/90; PULSE 70; RESP 18; O2SAT 100
== END 2020-12-21 17:40 | disposition home or self-care (01) ==
PROVIDERS: Emergency Provider Emergency Medicine; PCP Family Medicine
DX: K52.9 Noninfective gastroenteritis and colitis, unspecified (principal); E86.0 Dehydration
CPT/HCPCS: 36415; 74177; 80053; 81001; 83690; 85025; 85652; 86140; 96361; 96372; 96374; 99284; J0500; J2765; J7030; Q9967

== ENCOUNTER 2021-03-10 16:09 | Emergency (ER) | payer OTHER, SELFPAY ==
[2021-03-10 16:18] VITALS: BP 162/96; PULSE 98; RESP 18; TEMP 36.7; O2SAT 99
== END 2021-03-10 17:20 | disposition left against medical advice (07) ==
PROVIDERS: Emergency Provider Nurse Practitioner
DX: Z53.21 Procedure and treatment not carried out due to patient leaving prior to being seen by health care provider (principal)
CPT/HCPCS: 99199

== ENCOUNTER 2021-08-19 17:06 | Emergency (ER) | payer OTHER, SELFPAY ==
[2021-08-19 17:13] VITALS: BP 144/68; PULSE 89; RESP 16; TEMP 37.3
--- NOTE | 2021-08-19 17:33 | ED.SKABFB ---
HPI - Skin/Abscess/Foreign Bdy General Chief complaint: Skin/Abscess/Foreign Body Stated complaint: spider bite Time Seen by Provider: 08/19/21 17:33 Source: patient Mode of arrival: ambulatory Limitations: no limitations History of Present Illness HPI narrative: 36-year-old male presents with lesion to left upper arm for several months. Is concerned that it is a spider bite. He has no pain. Reports intermittent burning or itching. States that started as a small white pimple that he tried to pop several months ago. No other complaints. All systems reviewed and negative except as noted above. Related Data Allergies Allergy/AdvReac Type Severity Reaction Status Date / Time ketorolac Allergy Intermediate Weakness Verified 08/19/21 17:23 Bleach (Sodium Hypochlorite) Allergy Unknown Hives Verified 08/19/21 17:23 Review of Systems Review of Systems: CONSTITUTIONAL: Denies fever, chills, or sweats. EYES: Denies visual changes, redness, or discharge. ENT: Denies rhinorrhea, congestion, sore throat, or otalgia. CARDIOVASCULAR: Denies chest pain, palpitations, or edema. RESPIRATORY: Denies cough or dyspnea. GASTROINTESTINAL: Denies abdominal pain, nausea, vomiting, or diarrhea. GENITOURINARY: Denies dysuria or hematuria. SKIN: Denies rash. Reports burning lesion to left upper arm. MUSCULOSKELETAL: Denies back pain, joint pain, or myalgia. NEUROLOGIC: Denies headache, numbness, or weakness. PSYCHIATRIC: Denies anxiety or depression. All other systems reviewed are negative, except as documented in HPI. [facility] Past Medical History Medical History Abnormal urination Smoking Ulcerative colitis Surgical History Surgical History History of repair of ACL Family History Family History Father Family history of lung cancer Family history of heart disease in male family member before age 55 Other Cerebrovascular accident Family history of malignant neoplasm Social History Social History Smoking status: Never smoker Alcohol intake: never Gender identity (if verbalized by the patient): Male Comments At time of signature, agree with nursing past medical, surgical, social and family history. There is no relevant family history pertinent to the presenting complaint. Exam Narrative: GENERAL: This is a well-nourished, well-developed patient, in no apparent distress. HEAD: normocephalic, atraumatic. EYES: PERRL. Sclera clear/white. Vision is grossly intact. EARS: External ears kandi NOSE: External nose normal NECK: Neck supple, non-tender without lymphadenopathy, masses or thyromegaly. CARDIOVASCULAR: Regular rate and rhythm without murmurs, gallops, or rubs. RESPIRATORY: Clear to auscultation. Breath sounds equal bilaterally. No wheezes, rales, or rhonchi. SKIN: warm, Dry, intact with no rash, good texture and turgor. There is a approximate 1 cm diameter lesion to left upper arm. It is erythematous with no fluctuance. It is slightly bruised in appearance. No blistering or vesicles. No tenderness on palpation. No warmth. NEURO: awake, alert, and oriented to person, place and time. There were no obvious focal neurologic abnormalities. EXTREMITIES: Normal range of motion to all extremities. Chest: Chest/axillae images: 1. Small approximate 1 cm diameter erythematous skin lesion. Course Course Level of Care: Express Care Visit Vital Signs Vital signs: Vital Signs Temperature 37.3 C 08/19/21 17:13 Pulse Rate 89 08/19/21 17:13 Respiratory Rate 16 08/19/21 17:13 Blood Pressure 144/68 H 08/19/21 17:13 Temperature 37.3 C 08/19/21 17:13 Pulse Rate 89 08/19/21 17:13 Respiratory Rate 16 08/19/21 17:13 Blood Pressure 144/68 H 08/19/21 17:13 Reviewed MDM - Skin/Abscess/Foreig
== END 2021-08-19 18:00 | disposition home or self-care (01) ==
PROVIDERS: Emergency Provider Nurse Practitioner Family
DX: L98.9 Disorder of the skin and subcutaneous tissue, unspecified (principal)
CPT/HCPCS: 99213; G0463

== ENCOUNTER 2021-12-19 02:23 | Emergency (ER) | payer OTHER, SELFPAY ==
[2021-12-19] VITALS (7 sets, daily range): BP systolic 110–145; BP diastolic 72–92; PULSE 82–95; RESP 16–17; TEMP 36.9; O2SAT 97–100
--- NOTE | ~2021-12-19 | CT_ITS ---
EXAMINATION: CT abdomen pelvis w con DATE: 12/19/2021 05:31 INDICATION: Epigastric abdominal pain, nausea and vomiting. TECHNIQUE: Computed tomography (CT) of the abdomen and pelvis was performed with 100 mL Omnipaque-350 intravenous contrast. Automated exposure control and iterative reconstruction technique were employe d. The dose-length product was 330.75 mGy-cm. COMPARISON: 12/21/2020 FINDINGS: Lung bases are clear. Heart size is normal. No pericardial or pleural effusion. Liver, gallbladder, s pleen, pancreas, bilateral adrenal glands and kidneys are normal. Mild wall thickening of the descend ing, sigmoid colon and rectum without surrounding inflammatory stranding and favor artifact decompres sed state over colitis. Small bowel and appendix are normal. Bladder is normal. No free intraperitone al gas or fluid. No pathologically enlarged abdominal or pelvic lymphadenopathy. Likely physiologic m ild anterior wedging at T10-T12. IMPRESSION: 1. Mild distal colonic wall thickening without surrounding from trace stranding and favor artifact de compressed state over colitis. Reviewed, dictated and finalized at location A. IMPRESSION: 1. Mild distal colonic wall thickening without surrounding from trace stranding and favor artifact decompressed state over colitis.
--- NOTE | 2021-12-19 04:04 | ED.GENADULT ---
HPI - General Adult General Chief complaint: Abdominal Pain Stated complaint: Abd pain c n/v, bloody stool Time Seen by Provider: 12/19/21 03:46 History of Present Illness HPI narrative: Patient is a 36-year-old gentleman who presents the emergency department with chief complaint of abdominal pain. The patient reports that he has history of alcoholism and has been sober for approximately 9 months. The patient states he had a lot of stress in his life and decided to have a few drinks mixed with an energy drink. The patient states he did this yesterday and reports that he is having epigastric pain since then. Patient reports he is not personally had pancreatitis before but is concerned that he may have pancreatitis as he has had family members who have developed similar complaints when with pancreatitis when they have been drinking. The patient states that he is not suicidal or homicidal the patient reports that he feels extremely nauseated. I asked Related Data Allergies Allergy/AdvReac Type Severity Reaction Status Date / Time ketorolac Allergy Intermediate Weakness Verified 12/19/21 02:32 Bleach (Sodium Hypochlorite) Allergy Unknown Hives Verified 12/19/21 02:32 Review of Systems Review of Systems: A 10 system review of systems was completed on the patient and is negative except for what is stated in the HPI. Nursing and ancillary documentation was reviewed. PMFSH Past Medical History Medical History Abnormal urination Smoking Ulcerative colitis Surgical History Surgical History History of repair of ACL Family History Family History Father Family history of lung cancer Family history of heart disease in male family member before age 55 Other Cerebrovascular accident Family history of malignant neoplasm Social History Social History Smoking status: Never smoker Alcohol intake: never Gender identity (if verbalized by the patient): Male Exam Narrative: GENERAL: Well-appearing, well-nourished, and in no acute distress. HEAD: Normocephalic, atraumatic. EYES: PERRLA and EOMI. ENT: Nares clear, no rhinorrhea or epistaxis. Mucous membranes moist. NECK: Supple. CHEST: Clear to auscultation. No respiratory distress. HEART: Regular rate and rhythm. No murmur heard. Normal peripheral pulses. ABDOMEN: Soft, nontender, nondistended, normal active bowel sounds. EXTREMITIES: Normal range of motion. No edema. SKIN: Warm, dry, no rash. NEURO: No focal deficits. Alert and oriented x3. PSYCH: Normal mood and affect. Course Course Emergency Course: CT scan of the abdomen does not show any acute abnormalities cannot exclude nonspecific colitis Patient is feeling a little better still feels a little dry and nauseated. Vital Signs Vital signs: Vital Signs Temperature 36.9 C 12/19/21 02:27 Pulse Rate 95 12/19/21 02:27 Respiratory Rate 17 12/19/21 02:27 Blood Pressure 145/92 H 12/19/21 02:27 Pulse Oximetry 97 12/19/21 02:27 Oxygen Delivery Room Air 12/19/21 02:27 Temperature 36.9 C 12/19/21 02:27 Pulse Rate 95 12/19/21 02:27 Respiratory Rate 17 12/19/21 02:27 Blood Pressure 135/79 12/19/21 04:32 Pulse Oximetry 100 12/19/21 04:32 Oxygen Delivery Room Air 12/19/21 02:27 Medical Decision Making Vital Signs Vital Signs: Vital Signs Temperature 36.9 C 12/19/21 02:27 Pulse Rate 95 12/19/21 02:27 Respiratory Rate 17 12/19/21 02:27 Blood Pressure 145/92 H 12/19/21 02:27 Pulse Oximetry 97 12/19/21 02:27 Oxygen Delivery Room Air 12/19/21 02:27 Temperature 36.9 C 12/19/21 02:27 Pulse Rate 95 12/19/21 02:27 Respiratory Rate 17 12/19/21 02:27 Blood Pressure 135/79 12/19/21 04:32 Puls
[2021-12-19] MEDS: SODIUM CHLORIDE 0.9% IV 1,000 ML 999 ML IV CONT ×2 (04:20→06:22)
[2021-12-19] MEDS: ONDANSETRON INJ 4 MG/2 ML VIAL IV PUSH ×2 (04:20→06:21)
[2021-12-19 04:23] LABS: Basophils Percent Auto 0.2 % (0.2-1.2); Eosinophils Percent Auto 0.1 % (0-4.4); Hematocrit 43.3 % (42.0-52.0); Hemoglobin 15.3 g/dL (14.0-18.0); Immature Granulocyte Absolute 0.03 K/mm3 (0.00-0.031); Immature Granulocyte Percent A 0.2 % (0-0.5); Lymphocytes Absolute Auto 1.85 K/mm3 (0.9-3.2); Lymphocytes Percent Auto 14.7 % (18.3-44.2); Mean Corpuscular HGB Conc 35.3 g/dl (32-36); Mean Corpuscular Hemoglobin 32.5 pg (26-34); Mean Corpuscular Volume 91.9 fl (80-100); Mean Platelet Volume 10.2 fl (7.4-10.4); Monocytes Absolute Auto 1.1 K/mm3 (0.1-0.6); Neutrophils Absolute Auto 9.5 K/mm3 (1.3-6.7); Neutrophils Percent Auto 75.8 % (45.5-73.1); Platelet Count Result 280 k/mm3 (150-375); Red Blood Count 4.71 M/mm3 (4.6-6.20); Red Cell Distribution Width 11.9 % (11.5-14.5); White Blood Count 12.6 K/mm3 (4.5-10.0)
[2021-12-19 04:39] LABS: Alanine Aminotransferase 25 U/L (6-50); Albumin Level 5.4 g/dL (3.5-5.1); Alkaline Phosphatase 87 U/L (38-126); Anion Gap 18 mmol/L (8-16); Aspartate Amino Transferase 31 U/L (17-59); Bilirubin,Total 1.5 mg/dL (0.2-1.3); Blood Urea Nitrogen 20 mg/dL (9-20); Calcium 9.9 mg/dL (8.4-10.2); Carbon Dioxide 28 mmol/L (22-30); Chloride 95 mmol/L (98-107); Estimated CRCL calculation 110 ml/min; Estimated Glomerular Filt Rate > 60; Ethanol < 10 mg/dL (<10); Glucose 114 mg/dL (65-110); Lipase 25 U/L (23-300); Magnesium 2.1 mg/dL (1.6-2.3); Potassium 3.9 mmol/L (3.4-5.0); Sodium 141 mmol/L (137-145)
[2021-12-19 04:40] LABS: Lactic Acid Reflex 0.9 mmol/L (0.7-2.0)
[2021-12-19 05:35] LABS: Appearance Urine Clear (Clear); Bilirubin Urine 2+ (Negative); Blood Urine Negative (Negative); Color Urine Yellow (Yellow); Glucose Urine UA Negative (Negative); Ketones Urine 2+ mg/dL (Negative); Leukocyte Esterase Ur Negative LEU/UL (Negative); Nitrate Urine Negative (Negative); Protein Urine Trace mg/dL (Negative); Specific Grav Ur 1.025 (1.001-1.035); Urobilinogen Urine 0.2 mg/dL (<2.0)
[2021-12-19 05:52] LABS: Add Urine Microscopic? YES; RBC Urine 0-2 /hpf (0-2); WBC Urine 0-3 /hpf (0-3)
[2021-12-19 05:53] LABS: Bacteria Urine 1+ /hpf; Squamous Epithelial Cell Urine Few /hpf (Few)
[2021-12-19 05:55] LABS: Mucus Urine Moderate /lpf
[2021-12-19] MEDS: BELLADONNA ALK/PHENOB ELIX 10 ML, MAG HYDROX/ALUMINUM HYD/SIMETH 30 ML, LIDOCAINE HCL 2... PO (06:20)
[2021-12-19] MEDS: PANTOPRAZOLE SODIUM IV 40 MG VIAL IV PUSH (06:21)
== END 2021-12-19 07:03 | disposition home or self-care (01) ==
PROVIDERS: Emergency Provider Emergency Medicine
DX: K29.70 Gastritis, unspecified, without bleeding (principal); R10.9 Unspecified abdominal pain; R11.2 Nausea with vomiting, unspecified
CPT/HCPCS: 36415; 74177; 80053; 80307; 81001; 83605; 83690; 83735; 85025; 96361; 96374; 96375; 99284; A9270; C9113; J2405; J7030; Q9967

== ENCOUNTER 2022-02-20 06:48 | Emergency (ER) | payer OTHER, SELFPAY ==
[2022-02-20] VITALS (10 sets, daily range): BP systolic 134–158; BP diastolic 73–98; PULSE 60–104; RESP 13–20; TEMP 36.8; O2SAT 98–100
--- NOTE | ~2022-02-20 | CT_ITS ---
EXAMINATION: CT abdomen pelvis w con DATE: 02/20/2022 07:53 INDICATION: Generalized abdominal pain. History of diverticulitis. TECHNIQUE: Computed tomography (CT) of the abdomen and pelvis was performed with 100 CC Omnipaque 350 intravenous contrast. Automated exposure control and iterative reconstruction technique were employe d. Exam dose: 398.02 mGy-cm total exam DLP. COMPARISON: 12/19/2021 CT abdomen pelvis FINDINGS: The lung bases are clear of infiltrate or consolidation. Normal heart size. No pericardial or pleural effusion. The liver, gallbladder, bile ducts, spleen, pancreas, pancreatic duct, and adrenal glands and kidneys are unremarkable. There is mild atherosclerotic calcification of the abdominal aorta but no abdomina l aortic aneurysm. No intraperitoneal or retroperitoneal or pelvic mass lesion or adenopathy or ascit es. The urinary bladder, prostate gland and seminal vesicles are unremarkable. Normal appendix. No bowel obstruction or intraperitoneal free air. Included skeletal structures are unremarkable. IMPRESSION: Negative Reviewed, dictated and finalized at Location [facility]. Reviewed, dictated and finalized at location A. IMPRESSION: Negative
--- NOTE | 2022-02-20 07:15 | ED.ABDPAIN ---
HPI - Abdominal Pain General Chief Complaint: Abdominal Pain Stated Complaint: diverticulitis flare Time Seen by Provider: 02/20/22 07:01 Source: RN notes reviewed History of Present Illness HPI narrative: Patient presents emergency department from home for abdominal pain. Patient states abdominal pain began last night when he had initially gone to work states he began to have some cramping in his abdomen he states that following that he had a bowel movement that was loose and states he had had increasing abdominal pain since that time. This time patient states the pain has increased and is worse in the lower abdomen and worse in the left lower quadrant he states that has been associate with diarrhea as well as nausea and vomiting. He denies any fevers or chills or any other symptoms states he has a history of previous diverticulitis Related Data Allergies Allergy/AdvReac Type Severity Reaction Status Date / Time ketorolac Allergy Intermediate Weakness Verified 02/20/22 07:33 Bleach (Sodium Hypochlorite) Allergy Unknown Hives Verified 02/20/22 07:33 Review of Systems Review of Systems: Gen.: Denies fevers or chills ENT: Denies congestion Respiratory: Denies shortness of breath or cough CV: Denies chest pain or palpitations GI: See HPI denies burning, urgency, frequency or hematuria Musculoskeletal: Denies back pain or muscle pain Neuro: Denies numbness, tingling, weakness or focal weakness Skin: Denies rash Except as documented, all other systems reviewed and negative PMF Past Medical History Medical History Abnormal urination Smoking Ulcerative colitis Surgical History Surgical History History of repair of ACL Family History Family History Father Family history of lung cancer Family history of heart disease in male family member before age 55 Other Cerebrovascular accident Family history of malignant neoplasm Social History Social History Smoking status: Never smoker Alcohol intake: never Gender identity (if verbalized by the patient): Male Exam Narrative: APPEARANCE: No acute distress, nontoxic, resting in bed HEENT: Normocephalic, atraumatic, OMM RESPIRATORY: No respiratory distress, clear to auscultation bilaterally with no rhonchi wheezing or rales CARDIOVASCULAR: RRR s murmur ABDOMINAL: Soft nondistended diffusely tender to palpation with increased tenderness in left lower quadrant no rebound or guarding MUSCULOSKELETAl: Moves all extremities. No clubbing, cyanosis or edema. NEURO: Awake and alert. Following commands, speech normal, no focal deficits SKIN:: Warm, dry. Normal Color PSYCHIATRIC: Normal affect/mood Course Course Emergency Course: Had long discussion with the patient he states he has had recurrent issues with GI symptoms having nausea vomiting diarrhea states has had several work-ups in the past that have been negative he has not seen GI. States he does smoke marijuana. I discussed with him marijuana use I discussed referral for GI all questions answered patient in agreement at this time Patient states that they are feeling much better at this time. States abdominal pain has resolved. Repeat abdominal exam shows the patient's abdomen to be soft and nontender. Discussed with patient results of workup and diagnosis. Discussed need for follow-up with primary care physician, reasons to return to the emergency department in proper use of medication. Patient understands and agrees to current treatment plan Vital Signs Vital signs: Vital Signs Temperature 98.2 F 02/20/22 06:46 Pulse Rate 104 H 02/20/22 06:46 Respiratory Rate 16 02/20/22 06:46 Blood Pressure 152/95 H 02/20/22 06:46 Pulse Oximetry 100 02/20/22 06:46 Oxygen Delivery Room
[2022-02-20 07:22] LABS: Basophils Percent Auto 0.4 % (0.2-1.2); Eosinophils Absolute Auto 0.1 K/mm3 (0-0.3); Immature Granulocyte Absolute 0.03 K/mm3 (0.00-0.031); Immature Granulocyte Percent A 0.3 % (0-0.5); Lymphocytes Absolute Auto 1.96 K/mm3 (0.9-3.2); Lymphocytes Percent Auto 17.9 % (18.3-44.2); Mean Corpuscular Hemoglobin 32.3 pg (26-34); Mean Corpuscular Volume 92.2 fl (80-100); Mean Platelet Volume 9.3 fl (7.4-10.4); Monocytes Absolute Auto 0.9 K/mm3 (0.1-0.6); Monocytes Percent Auto 7.9 % (2.6-8.5); Neutrophils Percent Auto 72.5 % (45.5-73.1); Platelet Count Result 276 k/mm3 (150-375); Red Blood Count 4.34 M/mm3 (4.6-6.20); Red Cell Distribution Width 11.9 % (11.5-14.5)
[2022-02-20 07:31] LABS: Alanine Aminotransferase 34 U/L (6-50); Albumin Level 4.7 g/dL (3.5-5.1); Alkaline Phosphatase 83 U/L (38-126); Anion Gap 16 mmol/L (8-16); Aspartate Amino Transferase 36 U/L (17-59); Bilirubin,Total 0.5 mg/dL (0.2-1.3); Blood Urea Nitrogen 17 mg/dL (9-20); Calcium 8.6 mg/dL (8.4-10.2); Carbon Dioxide 25 mmol/L (22-30); Chloride 100 mmol/L (98-107); Estimated CRCL calculation 110 ml/min; Estimated Glomerular Filt Rate > 60; Glucose 101 mg/dL (65-110); Lipase 310 U/L (23-300); Potassium 3.6 mmol/L (3.4-5.0); Sodium 141 mmol/L (137-145)
[2022-02-20] MEDS: SODIUM CHLORIDE 0.9% IV 1,000 ML 999 ML IV CONT ×2 (07:39→10:58)
[2022-02-20] MEDS: ONDANSETRON INJ 4 MG/2 ML VIAL IV PUSH (07:39)
[2022-02-20] MEDS: FAMOTIDINE 20 MG/2 ML VIAL IV PUSH (07:39)
[2022-02-20 07:43] LABS: Appearance Urine Clear (Clear); Bilirubin Urine Negative (Negative); Blood Urine Negative (Negative); Color Urine Yellow (Yellow); Glucose Urine UA Negative (Negative); Ketones Urine 1+ mg/dL (Negative); Leukocyte Esterase Ur Negative LEU/UL (Negative); Nitrate Urine Negative (Negative); Protein Urine Negative (Negative); Urobilinogen Urine 0.2 mg/dL (<2.0); pH Urine 7.5 (5.0-9.0)
[2022-02-20 07:53] LABS: Amorphous Sediment Urine Few; Bacteria Urine Trace /hpf; Mucus Urine Rare /lpf; RBC Urine 0-2 /hpf (0-2); Squamous Epithelial Cell Urine Rare /hpf (Few); WBC Urine 0-3 /hpf
[2022-02-20 07:54] LABS: Add Urine Microscopic? YES
[2022-02-20] MEDS: MORPHINE SULFATE (*CRX) 4 MG/ML INJ IV PUSH (09:06)
--- NOTE | 2022-02-20 11:04 | ECG_ITS ---
Measurements Intervals [place] Rate: 82 P: 67 IA: 145 QRS: 70 QRSD: 97 T: 39 QT: 345 QTc: 404 Interpretive Statements SINUS RHYTHM WITH SINUS ARRHYTHMIA POSSIBLE LEFT ATRIAL ENLARGEMENT INCOMPLETE RIGHT BUNDLE BRANCH BLOCK DELAYED PRECORDIAL R/S TRANSITION NONSPECIFIC T-WAVE ABNORMALITY- INFERIOR LEADS BASELINE ARTIFACT- V1-V2, V6 BORDERLINE ECG COMPARED TO ECG 05/27/2020 20:53:48 NO FURTHER INTERPRETATION IS POSSIBLE Electronically Signed On 02-20-2022 12:24:25 CDT by Rene Tee D.O.
--- NOTE | 2022-02-20 11:41 | PC.NURSE ---
Patient refuses GI cocktail stating he couldnt keep it down last time . MD aware
== END 2022-02-20 13:16 | disposition home or self-care (01) ==
PROVIDERS: General Practice; Emergency Provider Emergency Medicine
DX: R10.84 Generalized abdominal pain (principal); R11.2 Nausea with vomiting, unspecified; R19.7 Diarrhea, unspecified
CPT/HCPCS: 36415; 74177; 80053; 81001; 83690; 85025; 93005; 96361; 96365; 96375; 99284; A9270; J0131; J2270; J2405; J7030; Q9967

== ENCOUNTER 2022-03-03 10:14 | Emergency (ER) | payer OTHER, SELFPAY ==
--- NOTE | ~2022-03-03 | XR_ITS ---
XR foot RT min 3V DATE: 03/03/2022 10:58 INDICATION: Pain between distal second and third metatarsals TECHNIQUE: 4 views COMPARISON: 10/21/2012 right foot FINDINGS: No fracture or dislocation, periosteal reaction or bone destruction. Joint spaces are prese rved. No erosive change. IMPRESSION: No significant abnormality Reviewed, dictated and finalized at location [facility]. [employer] IMPRESSION: No significant abnormality
[2022-03-03 10:22] VITALS: BP 145/75; PULSE 77; RESP 16; TEMP 36.8; O2SAT 99
--- NOTE | 2022-03-03 10:28 | ED.LOWEXIN ---
HPI - Extremity Injury (Lower) General Chief Complaint: Extremity Problem,Nontraumatic Stated Complaint: right foot injury Source: patient Mode of arrival: ambulatory Limitations: no limitations History of Present Illness HPI Narrative: 36 y/o male presented for c/o pain to right foot between 3rd&4th toes for about 3 days. Denies injury but patient does not have a vehicle, and has been walking about 3 miles to get to and from work daily. 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 States he had been walking to work in steel toe boots before getting sneakers, without significant change. Pain is intermittent, stabbing to the top and bottom of the foot. Also reports numbness or throbbing. Pain worse with walking, denies pain at rest. States by the end of the day it is severe. Taking ibuprofen and wearing soft brace and taping the toes. Related Data Allergies Allergy/AdvReac Type Severity Reaction Status Date / Time ketorolac Allergy Intermediate Weakness Verified 02/20/22 07:33 Bleach (Sodium Hypochlorite) Allergy Unknown Hives Verified 02/20/22 07:33 Review of Systems Review of Systems: CONSTITUTIONAL: Denies body aches, fever, chills CARDIOVASCULAR: Denies chest pain, palpitations, or edema. RESPIRATORY: Denies cough or dyspnea. SKIN: Denies rash, itching, or wounds. MUSCULOSKELETAL: per HPI NEUROLOGIC: Denies headache, numbness, tingling, or weakness. All systems reviewed & are unremarkable except as noted in HPI and below PMFSH Past Medical History Medical History Abnormal urination Smoking Ulcerative colitis Surgical History Surgical History History of repair of ACL Family History Family History Father Family history of lung cancer Family history of heart disease in male family member before age 55 Other Cerebrovascular accident Family history of malignant neoplasm Social History Social History Smoking status: Never smoker Alcohol intake: never Gender identity (if verbalized by the patient): Male Comments At time of signature, I have reviewed and agree with nursing past medical, surgical, social and family history unless otherwise noted. Please see nursing chart for further information. There is no relevant family history pertinent to the presenting complaint Exam Narrative: GENERAL: Well-appearing CHEST: Speaks in full sentences. No respiratory distress. HEART: Regular rate and rhythm. Normal and equal peripheral pulses. EXTREMITIES: Right foot tenderness with light palpation between 3 and 4 toes. Right foot has normal strength and sensation, slight limited range of motion to 3rd toe, endorses pain with movement. Mild swelling, no ecchymosis.No open wounds or obvious deformity; pulse palpable and equal bilaterally, skin warm, dry, pink. Capillary refill less than 3 seconds. SKIN: Warm, dry, no rash. NEURO: Alert and oriented x3. Course Course Emergency Course: Patient is aware of diagnosis, understands and agrees to treatment plan. Anticipatory guidance given. Patient agrees to follow-up as directed and is aware of reasons to seek care at the emergency department. Portions of this record may have been created with voice recognition software Level of Care: Express Care Visit Vital Signs Vital signs: Vital Signs Temperature 98.2 F 03/03/22 10:22 Pulse Rate 77 03/03/22 10:22 Respiratory Rate 16 03/03/22 10:22 Blood Pressure 145/75 H 03/03/22 10:22 Pulse Oximetry 99 03/03/22 10:22 Oxygen Delivery Room Air 03/03/22 10:22 Temperature 98.2 F 03/03/22 10:22 Pulse Rate 77 03/03/22 10:22 Respiratory Rate 16 03/03/22 10:22 Blood Pressure 145/75 H 03/03/22 10:22 Pulse Oximetr
== END 2022-03-03 11:46 | disposition home or self-care (01) ==
PROVIDERS: Emergency Provider Nurse Practitioner Family
DX: M79.671 Pain in right foot (principal)
CPT/HCPCS: 73630; 99213; G0463

== ENCOUNTER 2022-11-26 17:08 | Emergency (ER) | payer OTHER, SELFPAY ==
[2022-11-26 17:13] VITALS: BP 151/87; PULSE 98; RESP 17; TEMP 36.8; O2SAT 98
[2022-11-26 17:25] LABS: Basophils Percent Auto 0.2 % (0.2-1.2); Eosinophils Percent Auto 0.1 % (0-4.4); Hemoglobin 16.7 g/dL (14.0-18.0); Immature Granulocyte Absolute 0.03 K/mm3 (0.00-0.031); Immature Granulocyte Percent A 0.3 % (0-0.5); Lymphocytes Absolute Auto 1.73 K/mm3 (0.9-3.2); Lymphocytes Percent Auto 15.1 % (18.3-44.2); Mean Corpuscular HGB Conc 34.8 g/dl (32-36); Mean Corpuscular Hemoglobin 32.4 pg (26-34); Mean Corpuscular Volume 93.2 fl (80-100); Mean Platelet Volume 10.4 fl (7.4-10.4); Monocytes Percent Auto 8.7 % (2.6-8.5); Neutrophils Absolute Auto 8.7 K/mm3 (1.3-6.7); Neutrophils Percent Auto 75.6 % (45.5-73.1); Platelet Count Result 289 k/mm3 (150-375); Red Blood Count 5.15 M/mm3 (4.6-6.20); Red Cell Distribution Width 12.1 % (11.5-14.5); White Blood Count 11.5 K/mm3 (4.5-10.0)
[2022-11-26 17:35] LABS: Alanine Aminotransferase 29 U/L (6-50); Albumin Level 5.3 g/dL (3.5-5.1); Alkaline Phosphatase 84 U/L (38-126); Anion Gap 12 mmol/L (8-16); Aspartate Amino Transferase 27 U/L (17-59); Blood Urea Nitrogen 20 mg/dL (9-20); Calcium 9.6 mg/dL (8.4-10.2); Carbon Dioxide 26 mmol/L (22-30); Chloride 99 mmol/L (98-107); Estimated CRCL calculation 113 ml/min; Estimated Glomerular Filt Rate > 60; Glucose 134 mg/dL (65-110); Lipase 237 U/L (23-300); Potassium 3.6 mmol/L (3.4-5.0); Sodium 137 mmol/L (137-145)
[2022-11-26 19:10] LABS: Appearance Urine Clear (Clear); Bacteria Urine None Seen /hpf; Bilirubin Urine Negative (Negative); Blood Urine Negative (Negative); Color Urine Dark Yellow (Yellow); Glucose Urine UA Negative (Negative); Ketones Urine Trace mg/dL (Negative); Leukocyte Esterase Ur Negative LEU/UL (Negative); Nitrate Urine Negative (Negative); Non Pathogenic Casts 0-2; Protein Urine Trace mg/dL (Negative); Squamous Epithelial Cell Urine None seen /hpf (Few); WBC Urine 0-5 /hpf
[2022-11-26 19:16] LABS: Specific Grav Ur 1.036 (1.001-1.035)
[2022-11-26 19:17] LABS: Add Urine Microscopic? YES
[2022-11-26] MEDS: SODIUM CHLORIDE 0.9% IV 2,000 ML 999 ML IV CONT (19:42)
[2022-11-26] MEDS: HALOPERIDOL LACTATE 5 MG/ML VIAL IM (19:43)
[2022-11-26] MEDS: ONDANSETRON INJ 4 MG/2 ML VIAL IV PUSH (19:43)
[2022-11-26] MEDS: FAMOTIDINE 20 MG/2 ML VIAL IV PUSH (19:43)
--- NOTE | 2022-11-26 20:40 | ED.GENADULT ---
HPI - General Adult General Chief complaint: Abdominal Pain Stated complaint: Vomiting Time Seen by Provider: 11/26/22 18:59 History of Present Illness HPI narrative: This is a 37-year-old male presenting ED with a chief complaint of nausea vomiting. Patient says he has been having persistent nausea and vomiting for the last 3 days. Is also sick with sharp epigastric pain that is nonradiating 5 out 10 intensity and comes and goes. The patient has this approximately once per month. It is improved with hot baths. Patient is a daily marijuana user. Patient denies fever chills chest pain difficulty breathing urinary symptoms or diarrhea. Related Data Allergies Allergy/AdvReac Type Severity Reaction Status Date / Time ketorolac Allergy Intermediate Weakness Verified 02/20/22 07:33 Bleach (Sodium Hypochlorite) Allergy Unknown Hives Verified 02/20/22 07:33 [facility] Past Medical History Medical History Abnormal urination Smoking Ulcerative colitis Surgical History Surgical History History of repair of ACL Family History Family History Father Family history of lung cancer Family history of heart disease in male family member before age 55 Other Cerebrovascular accident Family history of malignant neoplasm Social History Social History Smoking status: Never smoker Alcohol intake: never Gender identity (if verbalized by the patient): Male Exam Narrative: APPEARANCE: No apparent distress. Head: atraumatic. EYES: EOMI, NOSE: Atraumatic NECK: Trachea midline RESPIRATORY: No increased rate of breathing CTAB CARDIOVASCULAR: RRR, ABDOMINAL: Non-distended , soft nontender no guarding rebound, no CVA tenderness MUSCULOSKELETAl: No obvious deformities NEURO: Alert. Moving 4/4 extremities SKIN:: Warm, dry. Normal color PSYCHIATRIC: Normal affect Course Vital Signs Vital signs: Vital Signs Temperature 98.2 F 11/26/22 17:13 Pulse Rate 98 11/26/22 17:13 Respiratory Rate 17 11/26/22 17:13 Blood Pressure 151/87 H 11/26/22 17:13 Pulse Oximetry 98 08/11/23 17:13 Oxygen Delivery Room Air 11/26/22 17:13 Temperature 98.2 F 11/26/22 17:13 Pulse Rate 98 11/26/22 17:13 Respiratory Rate 17 11/26/22 17:13 Blood Pressure 151/87 H 11/26/22 17:13 Pulse Oximetry 98 11/26/22 17:13 Oxygen Delivery Room Air 11/26/22 17:13 Medical Decision Making MDM Narrative Medical decision making narrative: -Presentation: 37-year-old daily marijuana user presenting with nausea and vomiting that is improved with hot baths. This is a recurrent problem. patient has is that he has been seen in the emergency department multiple times for this complaint and they never find the answer. -DDX includes but is not limited to: Cyclic vomiting, gastroenteritis, viral syndrome, pancreatitis -Co-morbidities complicating care: anxiety, daily marijuana user -Social determinants of health: unemployed, lives with his mother -External Chart Review: review of previous ER visits for undifferentiated abdominal pain. -Hx from independent Sources: Mother bedside -Independent interpretation of studies: CBC within normal limits. Metabolic panel unremarkable. Liver enzymes normal. Urine not indicative of infection. -Discussion of Management/Consultants: None -Dx tests considered but not ordered: none -Procedures: none -Interventions: 2 L normal saline, Haldol, Pepcid, Zofran, Compazine, Benadryl -Shared decision making / Disposition: I was called to bedside by the patient because him and his mother are unhappy with the care they been provided. They state that they have been seen in the emergency department multiple times for this same problem and every time they are told i
--- NOTE | 2022-11-26 21:05 | PC.NURSE ---
This RN was with EDP Dr. Marroquin to inform pt of options for his plan of care. This RN assisted EDP Dr. Marroquin in explaining options. Pt began to raise his voice and call EDP Dr. Marroquin a fucking liar that is not listening to his problems on why he is here . EDP Dr. Marroquin explained to pt that he was listening to his concerns and asked pt what his goal was for this visit. Pt then became irate and was accusing Dr Marroquin of not helping him and not providing him with the care he needed. The pt then stated he did not want to seek anymore treatment options because EDP Dr. Marroquin couldn't help him with his problems and that he needed to get a second opionin from someone that is not a fucking idiot . This RN removed pt IV and pt left with a steady unassisted gait towards the exit of the ED.
[2022-11-26 21:24] LABS: Amphetamine Screen Urine Negative (Negative); Barbiturate Screen Urine Negative (Negative); Benzodiazepines Screen Urine Negative (Negative); Cannabinoid Screen Urine Positive (Negative); Cocaine Screen Urine Negative (Negative); Methadone Screen Urine Negative (Negative); Opiate Screen Urine Negative (Negative); Phencyclidine Screen Urine Negative (Negative)
== END 2022-11-26 21:45 | disposition left against medical advice (07) ==
PROVIDERS: Student in an Organized Health Care Education/Training Program; Emergency Provider Emergency Medicine
DX: R11.2 Nausea with vomiting, unspecified (principal); F12.90 Cannabis use, unspecified, uncomplicated
CPT/HCPCS: 36415; 80053; 80307; 81001; 83690; 85025; 96361; 96372; 96374; 96375; 99284; J1630; J2405; J7030

== ENCOUNTER 2023-11-06 09:25 | Emergency (ER) | payer OTHER, SELFPAY ==
--- NOTE | ~2023-11-06 | CT_ITS ---
EXAMINATION: CT abdomen pelvis w con DATE: 11/06/2023 10:35 INDICATION: Epigastric abdominal pain, nausea and vomiting TECHNIQUE: Computed tomography (CT) of the abdomen and pelvis was performed with 100 CC Omnipaque 350 intravenous contrast. Automated exposure control and iterative reconstruction technique were employe d. Exam dose: 273.05 mGy-cm total exam DLP. COMPARISON: 02/20/2022 CT abdomen pelvis FINDINGS: The lung bases are clear. Normal heart size. No pericardial or pleural effusion. The liver, gallbladder, bile ducts, spleen, pancreas, pancreatic duct, and adrenal glands and kidneys appear normal. No urinary tract calculus or hydroureteronephrosis. Normal caliber of the abdominal aorta. No intraperitoneal or retroperitoneal or pelvic mass lesion or adenopathy or ascites. The urinary bladder, prostate gland and seminal vesicles are unremarkable. No evidence of appendicitis, bowel obstruction or intraperitoneal free air. Included skeletal structures are unremarkable. IMPRESSION: No significant abnormality Reviewed, dictated and finalized at [facility]. Reviewed, dictated and finalized at location [facility]. IMPRESSION: No significant abnormality
[2023-11-06 09:34] VITALS: BP 144/81; PULSE 89; RESP 20; TEMP 36.7; O2SAT 98
--- NOTE | 2023-11-06 09:39 | ECG_ITS ---
Test Date: 2023-11-06 09:42:47 Measurements Intervals [place] Rate: 86 P: 78 [place]: 140 QRS: 71 QRSD: 83 T: 67 QT: 350 QTc: 419 Interpretive Statements SINUS RHYTHM WITH SINUS ARRHYTHMIA LEFT ATRIAL ENLARGEMENT POSSIBLE RIGHT VENTRICULAR CONDUCTION DELAY NONSPECIFIC ST & T-WAVE ABNORMALITY- DIFFUSE LEADS BORDERLINE ECG No previous ECG available for comparison Electronically Signed On 11-06-2023 11:55:43 CDT by Rene Tee D.O.
[2023-11-06 09:47] LABS: Basophils Percent Auto 0.2 % (0.2-1.2); Hemoglobin 16.1 g/dL (14.0-18.0); Immature Granulocyte Absolute 0.04 K/mm3 (0.00-0.031); Immature Granulocyte Percent A 0.3 % (0-0.5); Lymphocytes Absolute Auto 0.87 K/mm3 (0.9-3.2); Lymphocytes Percent Auto 6.1 % (18.3-44.2); Mean Corpuscular Hemoglobin 32.8 pg (26-34); Mean Corpuscular Volume 93.7 fl (80-100); Monocytes Absolute Auto 0.3 K/mm3 (0.1-0.6); Monocytes Percent Auto 2.2 % (2.6-8.5); Neutrophils Absolute Auto 13.1 K/mm3 (1.3-6.7); Neutrophils Percent Auto 91.2 % (45.5-73.1); Platelet Count Result 261 k/mm3 (150-375); Red Blood Count 4.91 M/mm3 (4.6-6.20); Red Cell Distribution Width 11.9 % (11.5-14.5); White Blood Count 14.3 K/mm3 (4.5-10.0)
[2023-11-06 09:59] LABS: Alanine Aminotransferase 25 U/L (6-50); Alkaline Phosphatase 92 U/L (38-126); Anion Gap 13 mmol/L (4-12); Aspartate Amino Transferase 26 U/L (17-59); Blood Urea Nitrogen 18 mg/dL (9-20); Calcium 9.5 mg/dL (8.4-10.2); Carbon Dioxide 26 mmol/L (22-30); Chloride 100 mmol/L (98-107); Estimated CRCL calculation 108 ml/min; Estimated Glomerular Filt Rate > 60; Glucose 126 mg/dL (65-110); Lipase 85 U/L (23-300); Potassium 3.7 mmol/L (3.4-5.0); Sodium 139 mmol/L (137-145)
[2023-11-06 10:10] LABS: Appearance Urine Clear (Clear); Bacteria Urine None Seen /hpf; Bilirubin Urine Negative (Negative); Blood Urine Negative (Negative); Color Urine Yellow (Yellow); Glucose Urine UA Negative (Negative); Ketones Urine 2+ mg/dL (Negative); Leukocyte Esterase Ur Negative LEU/UL (Negative); Need Manual Microscopic Reviewed; Nitrate Urine Negative (Negative); Non Pathogenic Casts 0-2; Protein Urine 1+ mg/dL (Negative); RBC Urine 0-2 /hpf (0-2); Specific Grav Ur 1.036 (1.001-1.035); Squamous Epithelial Cell Urine None Seen /hpf (Few); WBC Urine 0-5 /hpf (0-3)
[2023-11-06 10:13] LABS: Add Urine Microscopic? YES
--- NOTE | 2023-11-06 10:33 | ED.ABDPAIN ---
HPI - Abdominal Pain General Chief Complaint: Abdominal Pain Stated Complaint: abdominal pain Time Seen by Provider: 11/06/23 09:37 History of Present Illness HPI narrative: Patient is a 38-year-old male who presents to the ER with abdominal cramping. Ongoing over the last 2 days. It worsened when he ate some ribs 2 days ago. He started vomiting. No diarrhea. Reports any time he deviates from his diet and has fatty foods he starts vomiting. No fevers or chills. No chest pain. No alleviating factors. Related Data Allergies Allergy/AdvReac Type Severity Reaction Status Date / Time ketorolac Allergy Intermediate Weakness Verified 02/20/22 07:33 Bleach (Sodium Hypochlorite) Allergy Unknown Hives Verified 02/20/22 07:33 Review of Systems Review of Systems: All systems reviewed & are unremarkable except as noted in HPI and below Constitutional: Constitutional: Reports no additional constitutional complaints ENT: Reports system reviewed and no additional complaints, except as documented Cardiovascular: Cardiovascular: Reports no additional cardiovascular complaints Respiratory: Respiratory: Reports no additional respiratory complaints Gastrointestinal: Gastrointestinal: Reports abdominal pain, Denies diarrhea, Reports nausea and Reports vomiting Musculoskeletal: Musculoskeletal: Reports no additional musculoskeletal complaints PMFSH Past Medical History Medical History Abnormal urination Smoking Ulcerative colitis Surgical History Surgical History History of repair of ACL Family History Family History Father Family history of lung cancer Family history of heart disease in male family member before age 55 Other Cerebrovascular accident Family history of malignant neoplasm Social History Social History Smoking status: Never smoker Alcohol intake: never Gender identity (if verbalized by the patient): Male Exam Narrative: GENERAL: Well-appearing, well-nourished, and in no acute distress. HEAD: Normocephalic, atraumatic. ENT: Mucous membranes moist. CHEST: Clear to auscultation. No respiratory distress. HEART: Regular rate and rhythm. Normal peripheral pulses. ABDOMEN: Soft, nontender, nondistended. EXTREMITIES: Normal range of motion. No edema. SKIN: Warm, dry, no rash. NEURO: Alert and oriented x3. PSYCH: Normal mood and affect. Course Course Emergency Course: Patient received IV fluids and antiemetics. Mild leukocytosis but no acute process on CT scan. Appropriate for discharge home with supportive care. Vital Signs Vital signs: Vital Signs Temperature 98.1 F 11/06/23 09:34 Pulse Rate 89 11/06/23 09:34 Respiratory Rate 20 11/06/23 09:34 Blood Pressure 144/81 H 11/06/23 09:34 Pulse Oximetry 98 11/06/23 09:34 Oxygen Delivery Room Air 11/06/23 09:34 Temperature 98.1 F 11/06/23 09:34 Pulse Rate 59 L 11/06/23 12:46 Respiratory Rate 20 11/06/23 12:46 Blood Pressure 141/89 H 11/06/23 12:46 Pulse Oximetry 98 11/06/23 12:46 Oxygen Delivery Room Air 11/06/23 09:34 MDM - Abdominal Pain Lab Data 11/06/23 09:42 11/06/23 09:42 Labs: Lab Results 11/06/23 11/06/23 Range/Units 09:42 09:51 WBC 14.3 H (4.5-10.0) K/mm3 RBC 4.91 (4.6-6.20) M/mm3 Hgb 16.1 (14.0-18.0) g/dL Hct 46.0 (42.0-52.0) % MCV 93.7 (80-100) fl MCH 32.8 (26-34) pg MCHC 35.0 (32-36) g/dl RDW 11.9 (11.5-14.5) % Plt Count 261 (150-375) k/mm3 MPV 10.0 (7.4-10.4) fl Immature Gran % (Auto) 0.3 (0-0.5) % Neut % (Auto) 91.2 H (45.5-73.1) % Lymph % (Auto) 6.1 L (18.3-44.2) % [place] % (Auto) 2.2 L (2.6-8.5) % Eos % (Auto) 0.0 (0-4.4) % Baso % (Auto) 0.2 (0.2-1.2) % L
[2023-11-06 11:28] VITALS: BP 153/91; PULSE 58; RESP 14; O2SAT 100
[2023-11-06] MEDS: ONDANSETRON INJ 4 MG/2 ML VIAL IV PUSH (11:56)
[2023-11-06] MEDS: SODIUM CHLORIDE 0.9% IV 1,000 ML 999 ML IV CONT (11:56)
[2023-11-06] MEDS: DICYCLOMINE HCL INJ 20 MG/2 ML VIAL IM (12:02)
[2023-11-06 12:46] VITALS: BP 141/89; PULSE 59; RESP 20; O2SAT 98
[2023-11-06 13:24] VITALS: BP 127/79; PULSE 69; RESP 23; TEMP 37.1; O2SAT 99
== END 2023-11-06 13:28 | disposition home or self-care (01) ==
PROVIDERS: Emergency Provider Emergency Medicine; PCP Family Medicine
DX: R11.10 Vomiting, unspecified (principal)
CPT/HCPCS: 36415; 74177; 80053; 81001; 83690; 85025; 93005; 96361; 96372; 96374; 99284; J0500; J2405; J7030; Q9967

== ENCOUNTER 2024-01-24 07:53 | Emergency (ER) | payer OTHER, SELFPAY ==
--- NOTE | ~2024-01-24 | XR_ITS ---
XR abdomen/kub 1V 01/24/2024 09:25 INDICATION: Left abdominal pain TECHNIQUE: KUB COMPARISON: CT dated 11/06/2023 FINDINGS: Bowel gas pattern is normal. There is no evidence of free air, mass, organomegaly, ascites or obstruction. There are pelvic phleboliths. There is a new calcification in the left pelvis. A dis leslie ureteral/UVJ stone cannot be excluded. The bones appear intact. IMPRESSION: 1: New calcification in the left pelvis. A distal ureteral/UVJ stone cannot be excluded. Consider cor relation with CT. Reviewed, dictated and finalized at location [facility]. IMPRESSION: 1: New calcification in the left pelvis. A distal ureteral/UVJ stone cannot be excluded. Consider correlation with CT.
--- NOTE | ~2024-01-24 | CT_ITS ---
Non-contrast CT scan of the Abdomen and Pelvis Clinical indication: Flank pain Technique: 2.5 mm axial scans were obtained through the abdomen and pelvis without intravenous or or al contrast. Dose reduction technique was used on this scan by utilizing automated exposure control a nd iterative reconstruction technique. The dose-length product (DLP) was 469.69 mGy-cm. COMPARISON: 11/06/2023 Findings: Images through the lung bases reveal no abnormalities. There is no evidence of renal or ureteral calculi. The kidneys and the ureters are nondilated. The liver, spleen, pancreas, gallbladder, and adrenals appear normal. There is no aortic aneurysm. There is no evidence of bowel obstruction. Images through the pelvis were performed. There is no evidence of ascites or lymphadenopathy. Urinary bladder unremarkable. No pelvic mass seen. Impression: No significant abnormality seen. Reviewed, dictated and finalized at [facility]. Impression: No significant abnormality seen.
[2024-01-24 07:59] VITALS: BP 152/88; PULSE 75; RESP 17; TEMP 36.3; O2SAT 99
[2024-01-24 08:27] LABS: Basophils Percent Auto 0.2 % (0.2-1.2); Eosinophils Absolute Auto 0.1 K/mm3 (0-0.3); Eosinophils Percent Auto 0.4 % (0-4.4); Hematocrit 44.3 % (42.0-52.0); Hemoglobin 15.6 g/dL (14.0-18.0); Immature Granulocyte Absolute 0.05 K/mm3 (0.00-0.031); Immature Granulocyte Percent A 0.4 % (0-0.5); Lymphocytes Absolute Auto 1.12 K/mm3 (0.9-3.2); Lymphocytes Percent Auto 8.4 % (18.3-44.2); Mean Corpuscular HGB Conc 35.2 g/dl (32-36); Mean Corpuscular Hemoglobin 33.5 pg (26-34); Mean Corpuscular Volume 95.1 fl (80-100); Monocytes Absolute Auto 0.5 K/mm3 (0.1-0.6); Neutrophils Absolute Auto 11.6 K/mm3 (1.3-6.7); Neutrophils Percent Auto 86.6 % (45.5-73.1); Platelet Count Result 230 k/mm3 (150-375); Red Blood Count 4.66 M/mm3 (4.6-6.20); Red Cell Distribution Width 11.9 % (11.5-14.5); White Blood Count 13.3 K/mm3 (4.5-10.0)
[2024-01-24 08:31] LABS: Alanine Aminotransferase 29 U/L (6-50); Albumin Level 5.1 g/dL (3.5-5.1); Alkaline Phosphatase 81 U/L (38-126); Anion Gap 12 mmol/L (4-12); Aspartate Amino Transferase 44 U/L (17-59); Blood Urea Nitrogen 26 mg/dL (9-20); Calcium 9.8 mg/dL (8.4-10.2); Carbon Dioxide 24 mmol/L (22-30); Chloride 106 mmol/L (98-107); Estimated CRCL calculation 127 ml/min; Estimated Glomerular Filt Rate > 60; Glucose 130 mg/dL (65-110); Lipase 79 U/L (23-300); Sodium 142 mmol/L (137-145)
[2024-01-24] MEDS: SODIUM CHLORIDE 0.9% IV 1,000 ML 999 ML IV CONT (08:49)
[2024-01-24] MEDS: ONDANSETRON INJ 4 MG/2 ML VIAL IV PUSH (08:49)
--- NOTE | 2024-01-24 09:18 | ED.NAVMDI ---
HPI - Nausea/Vomiting/Diarrhea General Chief complaint: Nausea/Vomiting/Diarrhea Stated complaint: I don't feel right Time Seen by Provider: 01/24/24 08:38 History of Present Illness HPI Narrative: Pt presents with nausea and vomiting and crampy abdominal pain this morning. Pt thought he was constipated and tried to dig feces out of rectum but was unsuccessful. Pt says he just doesn't feel well. Pt denies sick exposures or eating any bad food. Pt denies fever or diarrhea. Related Data Allergies Allergy/AdvReac Type Severity Reaction Status Date / Time ketorolac Allergy Intermediate Weakness Verified 01/24/24 08:07 Bleach (Sodium Hypochlorite) Allergy Unknown Hives Verified 01/24/24 08:07 Review of Systems Review of Systems: All systems reviewed & are unremarkable except as noted in HPI and below PMFSH Past Medical History Medical History Abnormal urination Smoking Ulcerative colitis Surgical History Surgical History History of repair of ACL Family History Family History Father Family history of lung cancer Family history of heart disease in male family member before age 55 Other Cerebrovascular accident Family history of malignant neoplasm Social History Social History Smoking status: Never smoker Alcohol intake: never Gender identity (if verbalized by the patient): Male Exam Const: General: healthy appearing and no acute distress Nutritional Appearance: well nourished Orientation/consciousness: patient oriented x3 Limitations: no limitations HENMT: Head: normal to inspection Mouth: Yes Normal oral and palatal mucosa present Neck: Neck: normal visual inspection and no lymphadenopathy Chest: Chest palpation & inspection: normal inspection of the chest Resp: Effort & Inspection: normal respiratory effort Auscultation: clear to auscultation bilaterally Cardio: Rate: regular rate Rhythm: regular rhythm GI: GI Palp: Yes Soft to palpation and No Tenderness to palpation present (GI) Auscultation: Hyperactive bowel sounds present Back/Spine/Pelvis: Back: no CVA tenderness Skin: General skin exam: normal color Rashes: no rashes Wounds: no wounds Neuro: General: patient oriented x3, moves all extremities, no meningeal signs, no focal motor deficits and CN's II-XI intact bilaterally Cranial nerves: Yes Nystagmus not present Speech: normal speech Extrem: General: normal to inspection and no clubbing, cyanosis or edema Psych: Mental Status: mental status grossly normal Affect: normal affect Attitude: cooperative Course Vital Signs Vital signs: Vital Signs Temperature 97.4 F L 01/24/24 07:59 Pulse Rate 75 01/24/24 07:59 Respiratory Rate 17 01/24/24 07:59 Blood Pressure 152/88 H 01/24/24 07:59 Pulse Oximetry 99 01/24/24 07:59 Oxygen Delivery Room Air 01/24/24 07:59 Temperature 97.4 F L 01/24/24 07:59 Pulse Rate 72 01/24/24 13:03 Respiratory Rate 17 01/24/24 13:03 Blood Pressure 142/78 H 01/24/24 13:03 Pulse Oximetry 100 01/24/24 13:03 Oxygen Delivery Room Air 01/24/24 07:59 MDM - Nausea/Vomiting/Diarrhea MDM Narrative Medical decision making narrative: Pt presents with vomiting and crampy abdominal pain. likely gastritis of viral origin but will check labs and get IV fluids and zofran to rule out other etiologies and electolyte disturbance. Lab Data 01/24/24 08:09 01/24/24 08:09 Labs: Lab Results 01/24/24 01/24/24 Range/Units 08:09 09:44 WBC 13.3 H (4.5-10.0) K/mm3 RBC 4.66 (4.6-6.20) M/mm3 Hgb 15.6 (14.0-18.0) g/dL Hct 44.3 (42.0-52.0) % MCV 95.1 (80-100) fl MCH 33.5 (26-34) pg MCHC 35.2 (32-36) g/dl RDW 11.9 (11.5-14.5) % Plt Count 230 (1
[2024-01-24 10:07] LABS: Add Urine Microscopic? YES; Appearance Urine Clear (Clear); Bacteria Urine None Seen /hpf; Bilirubin Urine Negative (Negative); Blood Urine Negative (Negative); Color Urine Yellow (Yellow); Glucose Urine UA Negative (Negative); Ketones Urine 3+ mg/dL (Negative); Leukocyte Esterase Ur Negative LEU/UL (Negative); Nitrate Urine Negative (Negative); Non Pathogenic Casts 0-2; Protein Urine Trace mg/dL (Negative); RBC Urine 0-2 /hpf (0-2); Specific Grav Ur 1.038 (1.001-1.035); Squamous Epithelial Cell Urine None Seen /hpf (Few); Urobilinogen Urine 0.2 mg/dL (<2.0); WBC Urine 0-5 /hpf (0-3); pH Urine 5.5 (5.0-9.0)
[2024-01-24 10:32] VITALS: PULSE 60; RESP 17; O2SAT 100
[2024-01-24] MEDS: KETOROLAC 15 MG/ML VIAL (*BKC) IV PUSH (10:37)
[2024-01-24] MEDS: PROCHLORPERAZINE EDISYLATE 10 MG/2 ML VIAL IV PUSH (12:43)
[2024-01-24 13:03] VITALS: BP 142/78; PULSE 72; RESP 17; O2SAT 100
== END 2024-01-24 13:06 | disposition home or self-care (01) ==
PROVIDERS: Emergency Provider Emergency Medicine; PCP Family Medicine
DX: K52.9 Noninfective gastroenteritis and colitis, unspecified (principal)
CPT/HCPCS: 36415; 74018; 74176; 80053; 81001; 83690; 85025; 96361; 96374; 96375; 99284; J0780; J1885; J2405; J7030

== ENCOUNTER 2024-03-05 08:21 | Emergency (ER) | payer OTHER, SELFPAY ==
--- NOTE | ~2024-03-05 | CT_ITS ---
EXAMINATION: CT abdomen pelvis w con DATE: 03/05/2024 10:35 INDICATION: Abdominal pain TECHNIQUE: Computed tomography (CT) of the abdomen and pelvis was performed with 100 mL Omnipaque-350 intravenous contrast. Automated exposure control and iterative reconstruction technique were employe d. The dose-length product was 291.89 mGy-cm. COMPARISON: 01/24/2024 FINDINGS: Lung bases are clear. Heart size is normal. No pericardial or pleural effusion. Liver, gallbladder, s pleen, pancreas, bilateral adrenal glands and kidneys are normal. Bowels including the appendix are n ormal. Bladder is normal. No free intraperitoneal gas or fluid. No pathologically enlarged abdominal or pelvic lymphadenopathy. Chronic mild likely physiologic anterior wedging at T11 and T12. IMPRESSION: 1. No acute intra-abdominal/pelvic process. Reviewed, dictated and finalized at location B. 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
[2024-03-05 08:33] VITALS: BP 142/85; PULSE 66; RESP 17; TEMP 36.4; O2SAT 100
[2024-03-05 09:38] LABS: Basophils Percent Auto 0.3 % (0.2-1.2); Eosinophils Absolute Auto 0.1 K/mm3 (0-0.3); Hematocrit 44.1 % (42.0-52.0); Hemoglobin 15.3 g/dL (14.0-18.0); Immature Granulocyte Absolute 0.04 K/mm3 (0.00-0.031); Immature Granulocyte Percent A 0.4 % (0-0.5); Lymphocytes Absolute Auto 1.44 K/mm3 (0.9-3.2); Lymphocytes Percent Auto 13.9 % (18.3-44.2); Mean Corpuscular HGB Conc 34.7 g/dl (32-36); Mean Corpuscular Hemoglobin 33.1 pg (26-34); Mean Corpuscular Volume 95.5 fl (80-100); Mean Platelet Volume 10.7 fl (7.4-10.4); Monocytes Absolute Auto 0.7 K/mm3 (0.1-0.6); Monocytes Percent Auto 6.8 % (2.6-8.5); Neutrophils Percent Auto 77.6 % (45.5-73.1); Platelet Count Result 247 k/mm3 (150-375); Red Blood Count 4.62 M/mm3 (4.6-6.20); Red Cell Distribution Width 11.8 % (11.5-14.5); White Blood Count 10.4 K/mm3 (4.5-10.0)
[2024-03-05 09:45] LABS: Add Urine Microscopic? YES; Appearance Urine Clear (Clear); Bacteria Urine None Seen /hpf; Bilirubin Urine Negative (Negative); Blood Urine Negative (Negative); Color Urine Yellow (Yellow); Glucose Urine UA Negative (Negative); Ketones Urine Trace mg/dL (Negative); Leukocyte Esterase Ur Negative LEU/UL (Negative); Nitrate Urine Negative (Negative); Non Pathogenic Casts 0-2; Protein Urine Trace mg/dL (Negative); RBC Urine 0-2 /hpf (0-2); Specific Grav Ur 1.028 (1.001-1.035); Squamous Epithelial Cell Urine None Seen /hpf (Few); Urobilinogen Urine 0.2 mg/dL (<2.0); WBC Urine 0-5 /hpf (0-3); pH Urine 6.5 (5.0-9.0)
[2024-03-05 10:16] LABS: Alanine Aminotransferase 22 U/L (6-50); Albumin Level 4.9 g/dL (3.5-5.1); Alkaline Phosphatase 76 U/L (38-126); Anion Gap 12 mmol/L (4-12); Aspartate Amino Transferase 27 U/L (17-59); Bilirubin,Total 0.8 mg/dL (0.2-1.3); Blood Urea Nitrogen 16 mg/dL (9-20); Calcium 9.7 mg/dL (8.4-10.2); Carbon Dioxide 24 mmol/L (22-30); Chloride 106 mmol/L (98-107); Estimated CRCL calculation 117 ml/min; Estimated Glomerular Filt Rate > 60; Glucose 123 mg/dL (65-110); Lipase 84 U/L (23-300); Potassium 4.2 mmol/L (3.4-5.0); Sodium 142 mmol/L (137-145)
--- NOTE | 2024-03-05 11:21 | ED_ITS ---
HPI - General Adult General Chief complaint: Abdominal Pain Stated complaint: something exploding in my stomach Time Seen by Provider: 03/05/24 09:14 History of Present Illness HPI narrative: 38-year-old male presents to the emergency department for evaluation for upper abdominal pain. Patient states he has these symptoms intermittently. Patient states that he did attempt to have a bowel movement this morning and then since then he has had upper abdominal pain. On initial examination patient laying immediately stated that he wanted to be transferred by ambulance to another hospital. Related Data Allergies Allergy/AdvReac Type Severity Reaction Status Date / Time No Known Allergies Allergy Verified 03/05/24 09:04 Review of Systems Review of Systems: All systems reviewed & are unremarkable except as noted in HPI and below PMFSH Past Medical History Medical History Abnormal urination Smoking Ulcerative colitis Surgical History Surgical History History of repair of ACL Family History Family History Father Family history of lung cancer Family history of heart disease in male family member before age 55 Other Cerebrovascular accident Family history of malignant neoplasm Social History Social History Smoking status: Never smoker Alcohol intake: never Gender identity (if verbalized by the patient): Male Exam Narrative: APPEARANCE: Anxious appearing HEAD: normocephalic, atraumatic. EYES: PERRLA/EOMI, conjunctivae clear. NOSE: Normal no drainage EARS:TMS clear with good light reflex. THROAT: Pharynx clear, no exudate. NECK: Supple. No adenopathy, no masses. RESPIRATORY: Airway patent, respirations nonlabored. Clear to auscultation bilaterally, no rales, rhonchi, wheezing. CARDIOVASCULAR: Regular rate and rhythm without murmurs rubs or gallops. ABDOMINAL: Soft, nontender, nondistended, normal bowel sounds MUSCULOSKELETAL: Moves all extremities. Strength/ROM intact, No edema, No calf tenderness. NEURO: Alert. Cranial nerves II through XII intact. Good gait. Good coordination SKIN: Warm, dry. Normal Color Course Vital Signs Vital signs: Vital Signs Temperature 97.5 F L 03/05/24 08:33 Pulse Rate 66 03/05/24 08:33 Respiratory Rate 17 03/05/24 08:33 Blood Pressure 142/85 H 03/05/24 08:33 Pulse Oximetry 100 03/05/24 08:33 Oxygen Delivery Room Air 03/05/24 08:33 Temperature 98.3 F 03/05/24 12:49 Pulse Rate 79 03/05/24 12:49 Respiratory Rate 18 03/05/24 12:49 Blood Pressure 134/81 03/05/24 12:49 Pulse Oximetry 100 03/05/24 12:49 Oxygen Delivery Room Air 03/05/24 08:33 Medical Decision Making MDM Narrative Medical decision making narrative: 38-year-old male present to the emergency department for upper abdominal pain. Patient is afebrile but does have a minor leukocytosis of 10.4 and a stable hemoglobin of 15.3 patient has no acute abnormalities on his CMP including a normal lipase. CT scan shows no acute intra-abdominal abnormality. Patient was treated with anti nausea medications but was still having persistent nausea and vomiting. Patient was offered Haldol to help control his nausea and vomiting. Patient declined the Haldol. When asked why the patient states ?every time I come here they treatment with Haldol neck home MD nausea and vomiting starts again. I guess the work years done and I am going to [place] ?. Patient then began complaining about his medical workup and insisting that he was going to leave. I attempted to reason with the patient explained that he was not being asked to leave and that we would continue his medical care but patient was very adamant that he felt his medical care was completed and proceeded to leave the e mergency department. Differential Diagnosis Differential Diagnosis: Cannabinoid hyperemesis syndrome, enterocolitis, colitis, gastritis, gastric ulcer, pancreatitis Vital Signs Vital Signs: Vital Signs Temperature 97.5 F L 03/05/24 08:33 Pulse Rate 66 03/05/24 08:33 Respiratory Rate 17 03/05/24 08:33 Blood Pressure 142/85 H 03/05/24 08:33 Pulse Oximetry 100 03/05/24 08:33 Oxygen Delivery Room Air 03/05/24 08:33 Temperature 98.3 F 03/05/24 12:49 Pulse Rate 79 03/05/24 12:49 Respiratory Rate 18 11/18/24 12:49 Blood Pressure 134/81 11/18/24 12:49 Pulse Oximetry 100 03/05/24 12:49 Oxygen Delivery Room Air 03/05/24 08:33 Lab Data 03/05/24 09:31 03/05/24 09:31 Labs: Lab Results 03/05/24 Range/Units 09:31 WBC 10.4 H (4.5-10.0) K/mm3 RBC 4.62 (4.6-6.20) M/mm3 Hgb 15.3 (14.0-18.0) g/dL Hct 44.1 (42.0-52.0) % MCV 95.5 (80-100) fl MCH 33.1 (26-34) pg MCHC 34.7 (32-36) g/dl RDW 11.8 (11.5-14.5) % Plt Count 247 (150-375) k/mm3 MPV 10.7 H (7.4-10.4) fl Immature Gran % (Auto) 0.4 (0-0.5) % Neut % (Auto) 77.6 H (45.5-73.1) % Lymph % (Auto) 13.9 L (18.3-44.2) % [place] % (Auto) 6.8 (2.6-8.5) % Eos % (Auto) 1.0 (0-4.4) % Baso % (Auto) 0.3 (0.2-1.2) % Lymph # (Auto) 1.44 (0.9-3.2) K/mm3 [place] # (Auto) 0.7 H (0.1-0.6) K/mm3 Eos # (Auto) 0.1 (0-0.3) K/mm3 Baso # (Auto) 0.0 (0.0-0.1) K/mm3 Abs Immat Gran (auto) 0.04 H (0.00-0.031) K/mm3 Absolute Neuts (auto) 8.0 H (1.3-6.7) K/mm3 Absolute Nucleated RBC 0.000 (0.0-0.012) K/mm3 Nucleated RBC % 0.0 (0.0-0.2) % Sodium 142 (137-145) mmol/L Potassium 4.2 (3.4-5.0) mmol/L Chloride 106 (98-107) mmol/L Carbon Dioxide 24 (22-30) mmol/L Anion Gap 12 (4-12) mmol/L BUN 16 D (9-20) mg/dL Creatinine 0.70 (0.7-1.3) mg/dL Estim Creat Clear Calc 117 ml/min Estimated GFR > 60 (59 - ) Glucose 123 H (65-110) mg/dL Calcium 9.7 (8.4-10.2) mg/dL Total Bilirubin 0.8 (0.2-1.3) mg/dL AST 27 (17-59) U/L ALT 22 (6-50) U/L Alkaline Phosphatase 76 (38-126) U/L Total Protein 8.0 (6.3-8.2) g/dL Albumin 4.9 (3.5-5.1) g/dL Lipase 84 (23-300) U/L Urine Color Yellow (Yellow) Urine Appearance Clear (Clear) Urine pH 6.5 (5.0-9.0) Ur Specific [place] 1.028 (1.001-1.035) Urine Protein Trace (Negative) mg/dL Urine Glucose (UA) Negative (Negative) mg/dL Urine Ketones Trace H (Negative) mg/dL Ur Blood (Man) Negative (Negative) Urine Nitrate Negative (Negative) Urine Bilirubin Negative (Negative) Urine Urobilinogen 0.2 (<2.0) mg/dL Leukocyte Esterase Rfl Negative (Negative) KYRA/UL Urine RBC 0-2 (0-2) /hpf Urine WBC 0-5 (0-3) /hpf Ur Squamous Epith Cells None seen (Few) /hpf Urine Bacteria None seen /hpf Urine Casts 0-2 Discharge Plan Discharge Clinical Impression: Acute upper abdominal pain Patient Disposition: Home, Self-Care Condition: Stable Instructions: Antibiotic Form, Acute Nausea and Vomiting (ED) Additional Instructions: Zofran as needed for nausea control. Follow a clear liquid diet. Omeprazole as directed for the next 14 days. Have close follow-up with primary care physician. If you have any worsening symptoms then please call or return to the emergency department. Prescriptions: New ondansetron 4 mg tablet,disintegrating 4 mg PO Q8H PRN (Reason: nausea and vomiting) Qty: 14 0RF No Action ibuprofen 800 mg tablet 800 mg PO TID PRN (Reason: pain) Qty: 15 0RF ondansetron 4 mg tablet,disintegrating 4 mg PO Q6H PRN (Reason: nausea and vomiting) Qty: 10 0RF famotidine 20 mg tablet 20 mg PO BID Qty: 20 0RF prochlorperazine maleate [Compazine] 10 mg tablet 10 mg PO Q6H PRN (Reason: nausea and vomiting) Qty: 14 0RF Follow-up/Referrals: UNKNOWN,DOCTOR [Primary Care Provider] -
[2024-03-05] MEDS: FAMOTIDINE 20 MG/2 ML VIAL IV PUSH (12:41)
[2024-03-05] MEDS: PANTOPRAZOLE SODIUM IV 40 MG VIAL IV PUSH (12:42)
[2024-03-05] MEDS: BELLADONNA ALK/PHENOB ELIX 10 ML, MAG HYDROX/ALUMINUM HYD/SIMETH 30 ML, LIDOCAINE HCL 2... PO (12:45)
[2024-03-05 12:49] VITALS: BP 134/81; PULSE 79; RESP 18; TEMP 36.8; O2SAT 100
--- NOTE | 2024-03-05 13:27 | PC.NURSE ---
pt refused the Haldol. pt says he had it here last time and it didn't help him or make him feel better
--- NOTE | 2024-03-05 13:55 | PC.NURSE ---
pt refused dc papers
== END 2024-03-05 13:54 | disposition home or self-care (01) ==
PROVIDERS: Emergency Provider Emergency Medicine
DX: R10.10 Upper abdominal pain, unspecified (principal)
CPT/HCPCS: 36415; 74177; 80053; 81001; 83690; 85025; 96374; 96375; 99284; A9270; J1630; J2470; Q9967

== ENCOUNTER 2024-07-25 09:50 | Emergency (ER) | payer OTHER, SELFPAY ==
--- NOTE | ~2024-07-25 | CT_ITS ---
EXAMINATION: CT abdomen pelvis w con DATE: 07/25/2024 11:14 INDICATION: Right-sided abdominal pain TECHNIQUE: Computed tomography (CT) of the abdomen and pelvis was performed with 100 mL Omnipaque-350 intravenous contrast. Automated exposure control and iterative reconstruction technique were employe d. The dose-length product was 327.05 mGy-cm. COMPARISON: 03/05/2024 FINDINGS: Mild linear discoid atelectasis in the left lower lobe. Heart size is normal. No pericardial or pleur al effusion. Mild focal hepatic steatosis at the ligamentum teres. Gallbladder, spleen, pancreas, yared ateral adrenal glands and kidneys are normal. Normal retrocecal appendix. No abnormal bowel wall thic kening or obstruction. Bladder is normal. No free intraperitoneal gas or fluid. No pathologically enl arged abdominal or pelvic lymphadenopathy. Mild likely physiologic anterior wedging at T11 and T12 wi th mild lower thoracic and lumbar spondylosis. IMPRESSION: 1. No acute intra-abdominal/pelvic process. Specifically the gallbladder and retrocecal appendix are normal. Reviewed, dictated and finalized at location B. IMPRESSION: 1. No acute intra-abdominal/pelvic process. Specifically the gallbladder and re trocecal appendix are normal.
[2024-07-25 10:07] VITALS: BP 148/106; PULSE 96; RESP 16; TEMP 36.5; O2SAT 99
[2024-07-25 10:39] LABS: Basophils Percent Auto 0.3 % (0.2-1.2); Eosinophils Absolute Auto 0.1 K/mm3 (0-0.3); Eosinophils Percent Auto 0.7 % (0-4.4); Hemoglobin 14.2 g/dL (14.0-18.0); Immature Granulocyte Absolute 0.02 K/mm3 (0.00-0.031); Immature Granulocyte Percent A 0.3 % (0-0.5); Lymphocytes Percent Auto 23.6 % (18.3-44.2); Mean Corpuscular Hemoglobin 31.6 pg (26-34); Mean Corpuscular Volume 95.8 fl (80-100); Mean Platelet Volume 9.5 fl (7.4-10.4); Monocytes Absolute Auto 0.5 K/mm3 (0.1-0.6); Monocytes Percent Auto 6.7 % (2.6-8.5); Neutrophils Absolute Auto 4.9 K/mm3 (1.3-6.7); Neutrophils Percent Auto 68.4 % (45.5-73.1); Platelet Count Result 263 k/mm3 (150-375); Red Blood Count 4.49 M/mm3 (4.6-6.20); Red Cell Distribution Width 11.9 % (11.5-14.5); White Blood Count 7.2 K/mm3 (4.5-10.0)
[2024-07-25 10:40] LABS: Add Urine Microscopic? NO; Appearance Urine Clear (Clear); Bilirubin Urine Negative (Negative); Blood Urine Negative (Negative); Color Urine Yellow (Yellow); Glucose Urine UA Negative (Negative); Ketones Urine Negative (Negative); Leukocyte Esterase Ur Negative LEU/UL (Negative); Nitrate Urine Negative (Negative); Protein Urine Negative (Negative); Urobilinogen Urine 0.2 mg/dL (<2.0); pH Urine 5.5 (5.0-9.0)
--- NOTE | 2024-07-25 10:45 | ECG_ITS ---
Test Date: 2024-07-25 11:30:32 Measurements Intervals [place] Rate: 64 P: 31 NH: 138 QRS: 73 QRSD: 91 T: 48 QT: 373 QTc: 386 Interpretive Statements SINUS RHYTHM INCOMPLETE RIGHT BUNDLE BRANCH BLOCK BORDERLINE ST ABNORMALITY- ANTEROLATERAL LEADS BASELINE ARTIFACT- V1 BORDERLINE ECG Compared to ECG 11/06/2023 09:42:47 NO SIGNIFICANT CHANGE Electronically Signed On 07-25-2024 11:42:48 CDT by Rene Tee D.O.
--- NOTE | 2024-07-25 10:46 | ED_ITS ---
HPI - Abdominal Pain General Chief Complaint: Back Pain/Injury Stated Complaint: R flank pain Time Seen by Provider: 07/25/24 10:00 History of Present Illness HPI narrative: Patient is a 39 year old male who presents to the ER with complaints right upper quadrant pain that radiates to his back. He reports he has a history of alcoholism and had ?2 beers the other day. Patient reports his pain gets worse after eating certain foods. He denies any recent fevers, urinary symptoms, CVA tenderness, or chest pain. Patient denies any pertinent medical history besides alcoholism. Related Data Allergies Allergy/AdvReac Type Severity Reaction Status Date / Time No Known Allergies Allergy Verified 03/05/24 09:04 Review of Systems 2 Review of Systems: All systems reviewed & are unremarkable except as noted in HPI and below PMFSH Past Medical History Medical History Ulcerative colitis Smoking Abnormal urination Surgical History Surgical History History of repair of ACL Family History Family History Father Family history of lung cancer Family history of heart disease in male family member before age 55 Other Cerebrovascular accident Family history of malignant neoplasm Social History Social History Smoking status: Never smoker Alcohol intake: never Gender identity (if verbalized by the patient): Male Exam 2 Narrative: GENERAL: Well appearing, well-nourished, non-toxic, in no acute distress. HEAD: Normocephalic, atraumatic. NECK: Supple. No adenopathy, no masses. RESPIRATORY: Airway patent, respirations nonlabored. Clear to auscultation bilaterally, no rales, rhonchi, wheezing. CARDIOVASCULAR: Regular rate and rhythm without murmurs, rubs, or gallops. Peripheral pulses 2+ and equal bilaterally. ABDOMINAL: Soft, tender RUQ, RLQ, nondistended, no hepatosplenomegaly. Normoactive BS. MUSCULOSKELETAL: Moves all extremities. Strength/ROM intact without gross deformities. No CVA tenderness SKIN: Warm, dry, normal color. No rashes. NEURO: A&O X3. Speech clear. Cranial nerves II-XII intact. No ataxic movements. PSYCHIATRIC: Appropriate mood and affect. Normal interaction. Course Vital Signs Vital signs: Vital Signs Temperature 36.5 C 07/25/24 10:07 Pulse Rate 96 07/25/24 10:07 Respiratory Rate 16 07/25/24 10:07 Blood Pressure 148/106 H 07/25/24 10:07 Pulse Oximetry 99 07/25/24 10:07 Oxygen Delivery Room Air 07/25/24 10:07 Temperature 36.5 C 07/25/24 10:07 Pulse Rate 96 07/25/24 10:07 Respiratory Rate 16 07/25/24 10:07 Blood Pressure 148/106 H 07/25/24 10:07 Pulse Oximetry 99 07/25/24 10:07 Oxygen Delivery Room Air 07/25/24 10:07 MDM - Abdominal Pain MDM Narrative Medical decision making narrative: Patient is a 39 year old male who presents to the ER with complaints right upper quadrant pain that radiates to his back. He reports he has a history of alcoholism and had ?2 beers the other day. Patient reports his pain gets worse after eating certain foods. He denies any recent fevers, urinary symptoms, CVA tenderness, or chest pain. Patient denies any pertinent medical history besides alcoholism. Labs Ordered: CBC, CMP, PTT, troponin, INR, lipase, ethanol, UA Imaging Ordered: CT abdomen pelvis Medications Ordered: 1 L normal saline IV bolus, (pt refuses pain medication at time of examination) Results: Pt's CT abdomen indicates Mild linear discoid atelectasis in the left lower lobe. Heart size is normal. No pericardial or pleural effusion. Mild focal hepatic steatosis at the ligamentum teres. Gallbladder, spleen, pancreas, bilateral adrenal glands and kidneys are normal. Normal retrocecal appendix. No abnormal bowel wall thickening or obstruction. Bladder is normal. No free intraperitoneal gas or fluid. No pathologically enlarged abdominal or pelvic lymphadenopathy. Mild likely physiologic anterior wedging at T11 and T12 with mild lower thoracic and lumbar spondylosis. Diagnosis: gastroenteritis Patient Education/Shared MDM: Results of lab work and imaging shared with patient. He continues to decline pain medication administration. Patient strongly advised to maintain hydration status upon discharge and follow-up with his PCP as soon as possible. He will be discharged home with a prescription for Bentyl. Strict return precautions provided. Patient verbalized understanding is in agreement with plan. Vital signs stable at time of discharge. All questions answered. Differential Diagnosis Differential diagnosis: Likely abdominal pain, acute appendicitis, constipation, gastroenteritis, pancreatitis and small bowel obstruction Lab Data Attestation: I reviewed the patient's lab results. 07/25/24 10:32 07/25/24 10:32 Labs: Lab Results 07/25/24 Range/Units 10:32 WBC 7.2 (4.5-10.0) K/mm3 RBC 4.49 L (4.6-6.20) M/mm3 Hgb 14.2 (14.0-18.0) g/dL Hct 43.0 (42.0-52.0) % MCV 95.8 (80-100) fl MCH 31.6 (26-34) pg MCHC 33.0 (32-36) g/dl RDW 11.9 (11.5-14.5) % Plt Count 263 (150-375) k/mm3 MPV 9.5 (7.4-10.4) fl Immature Gran % (Auto) 0.3 (0-0.5) % Neut % (Auto) 68.4 (45.5-73.1) % Lymph % (Auto) 23.6 (18.3-44.2) % [place] % (Auto) 6.7 (2.6-8.5) % Eos % (Auto) 0.7 (0-4.4) % Baso % (Auto) 0.3 (0.2-1.2) % Lymph # (Auto) 1.70 (0.9-3.2) K/mm3 [place] # (Auto) 0.5 (0.1-0.6) K/mm3 Eos # (Auto) 0.1 (0-0.3) K/mm3 Baso # (Auto) 0.0 (0.0-0.1) K/mm3 Abs Immat Gran (auto) 0.02 (0.00-0.031) K/mm3 Absolute Neuts (auto) 4.9 (1.3-6.7) K/mm3 Absolute Nucleated RBC 0.000 (0.0-0.012) K/mm3 Nucleated RBC % 0.0 (0.0-0.2) % PT 13.1 (11.1-14.7) Seconds INR 0.9 APTT 27.8 (22.3-36.8) Seconds Sodium 140 (137-145) mmol/L Potassium 4.0 (3.4-5.0) mmol/L Chloride 102 (98-107) mmol/L Carbon Dioxide 30 (22-30) mmol/L Anion Gap 8 (4-12) mmol/L BUN 16 (9-20) mg/dL Creatinine 0.85 (0.7-1.3) mg/dL Estim Creat Clear Calc Not Reportable Estimated GFR > 60 (59 - ) Glucose 95 (65-110) mg/dL Calcium 9.2 (8.4-10.2) mg/dL Total Bilirubin 0.9 (0.2-1.3) mg/dL AST 27 (17-59) U/L ALT 26 (6-50) U/L Alkaline Phosphatase 83 (38-126) U/L Troponin I < 0.012 (0.000-0.034) ng/mL Total Protein 7.0 (6.3-8.2) g/dL Albumin 4.8 (3.5-5.1) g/dL Lipase 48 (23-300) U/L Urine Color Yellow (Yellow) Urine Appearance Clear (Clear) Urine pH 5.5 (5.0-9.0) Ur Specific [place] 1.030 (1.001-1.035) Urine Protein Negative (Negative) mg/dL Urine Glucose (UA) Negative (Negative) mg/dL Urine Ketones Negative (Negative) mg/dL Ur Blood (Man) Negative (Negative) Urine Nitrate Negative (Negative) Urine Bilirubin Negative (Negative) Urine Urobilinogen 0.2 (<2.0) mg/dL Leukocyte Esterase Rfl Negative (Negative) KYRA/UL Ethyl Alcohol < 10 (<10) mg/dL Imaging Data Attestation: I personally reviewed and interpreted this imaging study as follows: Radiologist's impression: ITS Impressions Abdomen/Pelvis CT 07/25/24 11:16 IMPRESSION: 1. No acute intra-abdominal/pelvic process. Specifically the gallbladder and retrocecal appendix are normal. Discharge Plan Discharge Clinical Impression: Gastroenteritis, Abdominal pain in male Patient Disposition: Home Condition: Stable Instructions: Antibiotic Form, High Fiber Diet (ED), Abdominal Pain (ED) Additional Instructions: Please return to the ER with any worsening symptoms. Follow-up with primary care provider as soon as possible. Take all medications as prescribed, including regularly scheduled medications. You may use Bentyl as needed her abdominal pain. Patient Language: Amharic Prescriptions: New dicyclomine 10 mg capsule 10 mg PO TID Qty: 15 0RF No Action ibuprofen 800 mg tablet 800 mg PO TID PRN (Reason: pain) Qty: 15 0RF ondansetron 4 mg tablet,disintegrating 4 mg PO Q6H PRN (Reason: nausea and vomiting) Qty: 10 0RF famotidine 20 mg tablet 20 mg PO BID Qty: 20 0RF prochlorperazine maleate [Compazine] 10 mg tablet 10 mg PO Q6H PRN (Reason: nausea and vomiting) Qty: 14 0RF ondansetron 4 mg tablet,disintegrating 4 mg PO Q8H PRN (Reason: nausea and vomiting) Qty: 14 0RF Follow-up/Referrals: UNKNOWN,DOCTOR [Primary Care Provider] - Stand Alone Forms: Work/School Release IP Time of Disposition: 11:43
[2024-07-25 10:53] LABS: Alanine Aminotransferase 26 U/L (6-50); Albumin Level 4.8 g/dL (3.5-5.1); Alkaline Phosphatase 83 U/L (38-126); Anion Gap 8 mmol/L (4-12); Aspartate Amino Transferase 27 U/L (17-59); Bilirubin,Total 0.9 mg/dL (0.2-1.3); Blood Urea Nitrogen 16 mg/dL (9-20); Calcium 9.2 mg/dL (8.4-10.2); Carbon Dioxide 30 mmol/L (22-30); Chloride 102 mmol/L (98-107); Estimated Glomerular Filt Rate > 60; Glucose 95 mg/dL (65-110); Sodium 140 mmol/L (137-145)
--- OUTSIDE RECORDS SUMMARY | 2024-07-25 11:00 | XMS_ITS | Referral Summary ---
Author Organization [facility] [place] [address] [facility] Address [address] [place] [address] Care Team Providers Care Parking Line Painter Name Role Phone No, Physician Primary Care Provider [phone] Allergies No known active allergies Medications ondansetron ODT (ZOFRAN-ODT) 4 mg disintegrating tablet Take 1 tablet (4 mg total) by mouth every 8 (eight) hours as needed for nausea or vomiting 20 tablet 4 Active dicyclomine (BENTYL) 20 mg tablet Take 1 tablet (20 mg total) by mouth 2 (two) times a day for 10 days 20 tablet 4 Active Active Problems Problem Noted Date Diagnosed Date Chronic abdominal pain 07/30/2023 Overweight 01/21/2023 Assessment & Plan (01/21/2023 3:29 PM CDT): BMI Follow-up includes: nutrition counseling and exercise counseling. Generalized abdominal pain 12/21/2022 Assessment & Plan (01/24/2023 1:32 PM CDT): Patient was referred for colonoscopy and labs were ordered. CBC, urinalysis, and CMP were normal. Recommend amitriptyline 25 mg HS but but declined. Also discussed in recommend consider Metamucil with adequate fluid. Dietary measures have helped. Assessment & Plan (12/21/2022 1:36 PM CDT): The differential diagnosis is wide and of uncertain prognosis. Unclear cause but sounds more chronic such as colitis or other colon pathology. We will check CBC. We will check CMP. We will refer to GI for colonoscopy. This could be irritable bowel syndrome. Could be celiac disease. Malabsorptive problem because sometimes he has a foul-smelling stools at hard to flush. Projectile vomiting with nausea 12/21/2022 Assessment & Plan (12/21/2022 1:37 PM CDT): Need to consider colon pathology such as polyps, colon cancer, and colitis. Consider metabolic cause. Consider celiac disease. Consider spastic colitis. It could be genitourinary problem and will check urinalysis Change in bowel habit 12/21/2022 Assessment & Plan (01/24/2023 1:33 PM CDT): Still needs to get colonoscopy. Patient was referred for colonoscopy and labs were ordered. CBC, urinalysis, and CMP were normal. Probable irritable bowel syndrome. Dietary measures have helped. Recommend amitriptyline 25 mg HS but declined. Assessment & Plan (12/21/2022 1:35 PM CDT): The differential diagnosis is wide and of uncertain prognosis. This could be colon polyps or colon cancer could be colitis. It could be irritable bowel syndrome. I History of colon polyps 12/21/2022 Assessment & Plan (12/21/2022 1:35 PM CDT): The differential diagnosis is wide and of uncertain prognosis. History of colon polyps as a teenager but no colonoscopy since then. Apparently there were some tiny residual polyps that were not removed Well adult exam 12/16/2022 Immunizations Immunization Administration Dates Next Due Hep B, Adolescent or Pediatric 09/06/1996,1996,03/29/1996 Influenza, Unspecified 12/17/2022(Deferr ed: Patient decision),03/18/2022(Deferred: Patient decision) Social History Tobacco Use Types Packs/Day Years Used Date Smoking Tobacco: Former Cigarettes 2 22 2 000 - 2021 Passive Smoke Exposure: Past Smokeless Tobacco: Never AUDIT-C Answer Date Recorded Q1: How often do you have a drink containing alcohol? Never 01/24/2023 Q2: How many drinks containi ng alcohol do you have on a typical day when you are drinking? Patient does not drink Q3: How often do you have si x or more drinks on one occasion? Never 01/24/2023 PHQ-2 Answer Date Recorded PHQ-2 Total Score (If total score is 3 or more points, staff should administer the PHQ-9) 0 12/21/2022 Personal Safety Answer Date Recorded Have you ever been in or are you currently in a harmful physical or emotional relationship or is someone making you feel afraid or unsafe? Denies 03/05/2024 Sex and Gender Information Value Date Recorded Sex Assigned at Not on file Legal Sex Male 11:21 PM COLORING CHECKER Gender Identity Not on file Sexual Orientation Not on file Last Filed Vital Signs Vital Sign Reading Time Taken Comments Blood Pressure 155/78 03/05/2024 10:00 PM COLORING CHECKER Pulse 70 03/05/2024 10:00 PM COLORING CHECKER Temperature 37 C (98.6 F) 03/05/2024 3:54 PM COLORING CHECKER Respiratory Rate 18 03/05/2024 10:00 PM COLORING CHECKER Oxygen Saturation 100% 03/05/2024 10:00 PM COLORING CHECKER Inhaled Oxygen Concentration - - Weight 73.6 kg (162 lb 4.1 oz) 03/05/2024 4:18 P M COLORING CHECKER Height 175.3 cm (5' 9 ) 01/24/2023 1:12 PM CDT Body Mass Index 23.96 01/24/2023 1:12 PM CDT Plan of Treatment Not on file Insurance [facility] [place] [employer] [place] PPO Care Teams Parking Line Painter Relationship Specialty Start Date End Date No, Physician PCP - General 03/05/24
--- OUTSIDE RECORDS SUMMARY | 2024-07-25 11:00 | XMS_ITS | Clinical Summary ---
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 Machine Operator Name Role Phone No, Physician Primary Care Provider [phone] Allergies No known active allergies Medications ondansetron [...] Unspecified 12/17/2022(Deferr ed: Patient decision),03/18/2022(Deferred: Patient decision) Surgical History Surgery Date Site/Laterality Comments ARTHROSCOPIC REPAIR ACL Left MEDIAL COLLATERAL LIGAMENT REPAIR, KNEE L eft Medical History Medical History Date Comments ACL tear Family History Medical History Relation Name Comments Liver disease Cousin Cancer Maternal Grandmother Diabetes Paternal Grandfather Heart disease Paternal Grandfather Relation Name Status Comments Cousin Other Father Maternal Grandfather Maternal Grandmother Mother Alive Paternal Grandfather Paternal Grandmother Social History Tobacco Use Types Packs/Day Years [...] on file Legal Sex Male 11:21 PM EDITING INTERNSHIP Gender Identity Not on file Sexual Orientation Not on file Obstetrics History Last Filed Vital Signs Vital Sign Reading Time Taken Comments Blood Pressure 155/78 03/05/2024 10:00 PM EDIT[employer] INTERNSHIP Pulse 70 03/05/2024 10:00 PM [employer] INTER[employer]IP Temperature 37 C (98.6 F) 03/05/2024 3:54 PM EDITING INTERNSHIP Respiratory Rate 18 03/05/2024 10:00 PM EDIT[employer] INTERNSHIP Oxygen Saturation 100% 03/05/2024 10:00 PM EDIT[employer] INTERNSHIP Inhaled Oxygen Concentration - - Weight 73.6 kg (162 lb 4.1 oz) 03/05/2024 4:18 P M [employer] INTER[employer] Height 175.3 cm (5' 9 ) 01/24/2023 1:12 PM CDT Body Mass Index 23.96 01/24/2023 1:12 PM CDT Plan of Treatment Health Maintenance Due Date Last Done Comments Hepatitis C Screening 1986 DTaP/Tdap/Td Vaccine (1 - Tdap) 1997 Varicella Vaccines (1 of 2 - 13+ 2-dose series) 1999 Regular Well Visit/Exam 18-64 2004 Covid-19 Vaccine (3 - 2023-2 5 season) 2023 08/04/2020, 07/14/2020 Influenza Vaccine (#1) 2023 Depression Screening 12/22/2023 12/21/2022 Hepatitis B Screening Completed 09/06/1996 , 05/17/1996, 03/29/1996 HPV Vaccines Aged Out No longer eligi ble based on patient's age to complete this topic Pneumococcal vaccine <65 Aged Out No longer eligible based on patient's age to complete this topic Insurance [facility] AETNA [facility] Care Teams Sand Cleaning Machine Operator Relationship Specialty Start Date End Date No, Physician PCP - General 03/05/24
--- OUTSIDE RECORDS SUMMARY | 2024-07-25 11:00 | XMS_ITS | Clinical Summary ---
Author Organization [facility] Address [facility] [place] [address] Care Team Providers Care Business Practices Supervisor Name Role Phone Jersey Aceves MD Primary Care Provider Un available Allergies No known active allergies Medications ondansetron 4 MG disintegrating tablet Take 1 tablet (4 mg total) by mouth every 8 (eight) hours as needed for Nausea. 20 tablet 08/27/19 21 Active PANTOPRAZOLE EC 40 MG tabletIndications: Gastroesophageal reflux disease, unspecified whether esophagitis present TAKE 1 TABLET BY MOUTH DAILY FOR 30 DAYS. 90 tablet 3 09/18/19 21 Active Additional Information Patient taking differently: 40 mg Oral Daily, Reported on 10/03/2020 Active Problems No known active problems Resolved Problems Problem Noted Date Diagnosed Date Resolved Date Colitis 08/24/2020 08/26/2020 Immunizations Name Administration Dates Next Due Hepatitis B Pediatric 09/06/1996,05/17/1996,03/18 Family History Medical History Relation Comments pancreatic cancer Maternal Grandmother Relation Status Comments Maternal Grandmother Social History Tobacco Use Types Packs/Day Years Used Date Smoking Tobacco: Former Smokeless Tobacco: Never Alcohol Use Standard Drinks/Week Comments Never 0 (1 standard drink = 0.6 oz pur e alcohol) AUDIT-C Answer Date Recorded Q1: How often do you have a drink containing alc ohol? Never 06/19/2020 Average Number of Drinks Not on file 021 Frequency of Binge Drinking Not on file 07/2020 Sex and Gender Information Value Date Recorded Sex Assigned at Not on file Legal Sex Male 5:45 PM CDT Gender Identity Not on file Sexual Orientation Not on file Last Filed Vital Signs Vital Sign Reading Time Taken Comments Blood Pressure 118/63 10/03/2020 2:00 PM CDT Pulse 65 10/03/2020 2:00 PM CDT Temperature 36.9 C (98.5 F) 10/03/2020 10:03 AM CDT Respiratory Rate 17 10/03/2020 2:00 PM CDT Oxygen Saturation 98% 10/03/2020 2:00 PM CDT Inhaled Oxygen Concentration - - Weight 61.2 kg (135 lb) 10/03/2020 10:03 AM CDT Height 162.6 cm (5' 4 ) 10/03/2020 10:03 AM CDT Body Mass Index 23.17 10/03/2020 10:03 AM CDT Plan of Treatment Health Maintenance Due Date Last Done Comments DTaP, Tdap and Td Vaccines ( 1 - Tdap) 2005 Annual Physical 09/03/2021 09/03/2020 COVID-19 Vaccine (2023-2 5 season) 2023 Hepatitis B Vaccines Completed 09/06/1996, 05/17/1996, 03/29/1996 Hepatitis C Completed 09/18/2020 HPV Vaccines Aged Out No longer eligi ble based on patient's age to complete this topic Meningococcal B Vaccine Aged Out No l onger eligible based on patient's age to complete this topic Meningococcal Vaccine Aged Out No luiza mehrdad eligible based on patient's age to complete this topic Pneumococcal Vaccine: Pediatrics (0 to 5 Years) and At-Risk Patients (6 to 64 Years) Aged Out No longer eligible b ased on patient's age to complete this topic RSV Immunizations Under 20 Months Aged Out No longer eligible b ased on patient's age to complete this topic Goals Goal Patient Goal Type Associated Problems Recent Progress Patient-Stated? Author Diet - maintain adequate fluid and fiber intake for normal bowel function Diet No Liliana Kate RN Procedures Procedure Name Priority Date/Time Associated Diagnosis Comments HEPATITIS C ANTIBODY Routine 09/18/2020 7:06 AM CDT Need for hepatitis C screening test from Last 3 Months or Most Recently Relevant to Health Maintenance Results * HEPATITIS C ANTIBODY (09/18/2020 7:06 AM CDT) HEPATITIS C AB NON-REACTI VE NON-REACT MIRELA 09/18/2020 11:18 PM CDT [facility] Comment: ANTIBODIES TO HCV NOT DETECTED. DOES NOT EXCLUDE THE POSSIBILITY OF EXPOSURE TO HCV. 09/18/2020 7:06 AM CDT Jersey Aceves MD LABORATORY Final Res ult [facility] [address] [place] [address], [id number] from Last 3 Months or Most Recently Relevant to Health Maintenance Insurance T Advance Directives * Full Code (Latest Code Status on File) Date Activated Date Inactivated Comments 08/24/2020 5:08 PM 08/26/2020 1:24 PM Care Teams Business Practices Supervisor Relationship Specialty Start Date End Date Jersey Aceves MD PCP - General FAMILY PRACTICE 07/09/20
[2024-07-25 11:01] LABS: Ethanol < 10 mg/dL (<10)
[2024-07-25 11:10] LABS: INR 0.9; Prothrombin Time 13.1 Seconds (11.1-14.7)
[2024-07-25 11:11] LABS: Partial Thromboplastin Time 27.8 Seconds (22.3-36.8)
[2024-07-25 11:16] LABS: Lipase 48 U/L (23-300)
[2024-07-25 11:23] LABS: Troponin I < 0.012 ng/mL (0.000-0.034)
[2024-07-25] MEDS: SODIUM CHLORIDE 0.9% IV 1,000 ML 999 ML IV CONT (11:30)
--- OUTSIDE RECORDS SUMMARY | 2024-07-25 11:34 | XMS_ITS | Clinical Summary ---
Author Organization [facility] Address [facility] [place] [address] Care Team Providers Care Dental Hygienist Mobile Coordinator Name Role Phone Jersey Aceves MD Primary [...] VE NON-REACT MIRELA 09/18/2020 11:18 PM CDT [facility] Comment: ANTIBODIES TO HCV NOT DETECTED. DOES NOT EXCLUDE THE POSSIBILITY OF EXPOSURE TO HCV. 09/18/2020 7:06 AM CDT Jersey Aceves MD LABORATORY Final Res ult [facility] [address] [place] [address], [id number] from Last 3 Months or Most Recently Relevant to Health Maintenance Insurance T Advance Directives * Full Code (Latest Code Status on File) Date Activated Date Inactivated Comments 08/24/2020 5:08 PM 08/26/2020 1:24 PM Care Teams Dental Hygienist Mobile Coordinator Relationship Specialty Start Date End Date Jersey Aceves MD PCP - General FAMILY PRACTICE 07/09/20
--- OUTSIDE RECORDS SUMMARY | 2024-07-25 11:34 | XMS_ITS | Clinical Summary ---
Author Organization [facility] [address] Address [address] [place] [address] Care Team Providers Care Property Utilization Manager Name Role Phone No, Physician Primary Care Provider [phone] Allergies No known active allergies Medications ondansetron [...] on file Legal Sex Male 11:21 PM REFRIGERATION ENGINEER Gender Identity Not on file Sexual Orientation Not on file Obstetrics History Last Filed Vital Signs Vital Sign Reading Time Taken Comments Blood Pressure 155/78 03/05/2024 10:00 PM REFRIGERATION ENGINEER Pulse 70 03/05/2024 10:00 PM REFRIGERATION ENGINEER Temperature 37 C (98.6 F) 03/05/2024 3:54 PM REFRIGERATION ENGINEER Respiratory Rate 18 03/05/2024 10:00 PM REFRIGERATION ENGINEER Oxygen Saturation 100% 03/05/2024 10:00 PM REFRIGERATION ENGINEER Inhaled Oxygen Concentration - - Weight 73.6 kg (162 lb 4.1 oz) 03/05/2024 4:18 P M REFRIGERATION ENGINEER Height 175.3 cm (5' 9 ) 01/24/2023 [...] age to complete this topic Insurance [facility] AETNA [facility] Care Teams Property Utilization Manager Relationship Specialty Start Date End Date No, Physician PCP - General 03/05/24
--- OUTSIDE RECORDS SUMMARY | 2024-07-25 11:34 | XMS_ITS | Referral Summary ---
Author Organization [facility] [address] [facility] Address [address] [place] [address] Care Team Providers Care Cloth Roll Winder Name Role Phone No, Physician Primary Care Provider [phone] Allergies No known active allergies Medications ondansetron [...] on file Legal Sex Male 11:21 PM VICE PRESIDENT SAFETY Gender Identity Not on file Sexual Orientation Not on file Last Filed Vital Signs Vital Sign Reading Time Taken Comments Blood Pressure 155/78 03/05/2024 10:00 PM VICE PRESIDENT SAFETY Pulse 70 03/05/2024 10:00 PM VICE PRESIDENT SAFETY Temperature 37 C (98.6 F) 03/05/2024 3:54 PM VICE PRESIDENT SAFETY Respiratory Rate 18 03/05/2024 10:00 PM VICE PRESIDENT SAFETY Oxygen Saturation 100% 03/05/2024 10:00 PM VICE PRESIDENT SAFETY Inhaled Oxygen Concentration - - Weight 73.6 kg (162 lb 4.1 oz) 03/05/2024 4:18 P M VICE PRESIDENT SAFETY Height 175.3 cm (5' 9 ) 01/24/2023 1:12 PM CDT Body Mass Index 23.96 01/24/2023 1:12 PM CDT Plan of Treatment Not on file [facility] [facility] [place] [employer] [facility] PPO Care Teams Cloth Roll Winder Relationship Specialty Start Date End Date No, Physician PCP - General 03/05/24
== END 2024-07-25 12:23 | disposition home or self-care (01) ==
PROVIDERS: Emergency Provider Registered Nurse
DX: K52.9 Noninfective gastroenteritis and colitis, unspecified (principal); R10.11 Right upper quadrant pain
CPT/HCPCS: 36415; 74177; 80053; 81003; 82077; 83690; 84484; 85025; 85610; 85730; 93005; 96360; 99284; J7030; Q9967

== ENCOUNTER 2024-10-06 13:46 | Emergency (ER) | payer OTHER, SELFPAY ==
--- NOTE | 2024-10-06 13:49 | ED_ITS ---
HPI - Abdominal Pain General Chief Complaint: Abdominal Pain Stated Complaint: Stomach Problems, Work Note Time Seen by Provider: 10/06/24 14:05 Source: patient Mode of arrival: ambulatory Limitations: no limitations History of Present Illness HPI narrative: Harpal is a 39-year-old male patient presenting to the clinic today with request for a work. He reports over the last few days he has had some stomach pain but had a bowel movement this morning and the pain has resolved. History of ulcerative colitis. Been suffering from abdominal pain for since he was 20 years of age and was diagnosed with ulcerative colitis. Denies any blood in his stool. Denies bloating. Denies any fevers, chills, body aches. No nausea, vomiting, or diarrhea Has colonoscopy scheduled for Tuesday of this week. He is wanting a note to go back to work tomorrow as he has missed the past few days and they requesting a note. He denies any other concerns at this time. Related Data Home Medications ?Medication ?Instructions ?Recorded ?Confirmed ?Last Taken ?Type No Home Medications 08/29/24 09/25/24 Unknown History Allergies Allergy/AdvReac Type Severity Reaction Status Date / Time No Known Allergies Allergy Verified 10/06/24 14:04 [facility] Past Medical History Medical History (Updated 10/06/24 @ 14:09 by Mario Barreto APRN) Ulcerative colitis Smoking Abnormal urination Surgical History Surgical History History of repair of ACL Family History Family History Father Family history of lung cancer Family history of heart disease in male family member before age 55 Other Cerebrovascular accident Family history of malignant neoplasm Social History Social History Smoking packs per day: 1 Smoking cigarettes per day: 20.0 Years smoked: 24 Smoking pack-years: 24.00 Smoking status: Former smoker Tobacco type: cigarettes Alcohol intake: former Substance use: current Substance use type: marijuana Other substance usage details: smoke from dispensary Last use: daily Do You Feel Safe in your Home?: Yes Lack of Transportation: No Lack of Food: Never True Current Housing: I Have Housing Concerned About Future Housing: No Difficulty Paying Gas/Electric Bills: No Difficulty Paying for Meds: No Currently Unemployed: No Education: High School Diploma/GED Living arrangements: with family Occupation/Education: occupation Additional occupation/education comments: [employer] Gender identity (if verbalized by the patient): Male Spiritual care concerns: No Agree to blood products: Yes Comments At the time of my signature, I reviewed and agree with the nursing past medical, surgical, social, and family history. There is no relevant family history pertinent to the patient complaint. Exam Narrative: General: Well-developed, well nourished, in no apparent distress. Head: Normocephalic, atraumatic. Cardio: Regular rate and rhythm, s1 and s2 normal, no murmur appreciated. Resp: Clear to auscultation bilaterally, no rhonchi, rales, wheezing or rubs. Abdomen: Soft, pliable, bowel sounds present in all quadrants, generalized mildly-tender to palpation, no organomegly, no CVAT tenderness. Course Course Emergency Course: Portions of this record may have been created with voice recognition software. Level of Care: Express Care Visit Vital Signs Vital signs: Vital Signs Temperature 36.6 C 10/06/24 13:57 Pulse Rate 96 10/06/24 13:57 Respiratory Rate 20 10/06/24 13:57 Blood Pressure 133/84 10/06/24 13:57 Pulse Oximetry 97 10/06/24 13:57 Oxygen Delivery Room Air 10/06/24 13:57 Temperature 36.6 C 10/06/24 13:57 Pulse Rate 96 10/06/24 13:57 Respiratory Rate 20 10/06/24 13:57 Blood Pressure 133/84 10/06/24 13:57 Pulse Oximetry 97 10/06/24 13:57 Oxygen Delivery Room Air 10/06/24 13:57 Vital signs reviewed MDM - Abdominal Pain MDM Narrative Medical decision making narrative: At the time of visit patient is resting comfortably on the exam table. Patient appears to be nontoxic. Plan: Patient is requesting work note to go back to work tomorrow. He denies any other concerns at this time and has a colonoscopy scheduled for Tuesday of this week and plans to follow-up with his GI specialist. Supportive measures were discussed with the patient and they voiced understanding discharge instructions and agrees to treatment plan. Return precautions reviewed Differential Diagnosis Differential diagnosis: Likely abdominal pain, constipation, diverticulitis, gastroenteritis, pancreatitis, small bowel obstruction and other (Ulcerative colitis flare) Discharge Plan Discharge Clinical Impression: Chronic abdominal pain, History of ulcerative colitis Patient Disposition: Home Condition: Stable Instructions: Antibiotic Form, Ulcerative Colitis (ED), Abdominal Pain (ED) Additional Instructions: Increase fluids and stay well hydrated Increase fiber in your diet Follow-up with your GI specialist on Tuesday for colonoscopy is scheduled Patient Language: Brazilian Prescriptions: No Action No Home Medications Follow-up/Referrals: Britney Coleman APRN [Primary Care Provider] - Stand Alone Forms: Work/School Release IP Time of Disposition: 14:09 Quality NIHSS Nursing Documentation ED NIHSS nursing documentation: reviewed/agree
[2024-10-06 13:57] VITALS: BP 133/84; PULSE 96; RESP 20; TEMP 36.6; O2SAT 97
== END 2024-10-06 14:20 | disposition home or self-care (01) ==
PROVIDERS: Emergency Provider Nurse Practitioner Family; PCP Nurse Practitioner Family
DX: G89.29 Other chronic pain (principal); R10.9 Unspecified abdominal pain; K51.90 Ulcerative colitis, unspecified, without complications; Z87.891 Personal history of nicotine dependence; F12.90 Cannabis use, unspecified, uncomplicated
CPT/HCPCS: 99211; G0463

== ENCOUNTER 2024-10-10 00:03 | Day surgery (SDC) | payer SELFPAY ==
[2024-09-25 10:30] VITALS: BMI 25.9
[2024-10-10 10:12] VITALS: BP 118/76; PULSE 67; RESP 18; TEMP 36.8; O2SAT 100
--- NOTE | 2024-10-10 10:19 | P.PNAN_ITS ---
Anes - Initial Pre Proc Eval Procedure: Operation Date: 10/10/24 11:30 Proposed Procedures p Diagnostic Colonoscopy - James Rhoades MD Date/Time: 10/10/24 10:19 Surgeon: James Rhoades MD Pre Op Diagnosis: Diarrhea,Unspecified abdominal pain,Constipation, Patient Data Age: 39 Gender: M Height: 1.7 m Weight: 70.6 kg Last Vital Signs Temp 36.8 C 10/10/24 10:12 Pulse 67 10/10/24 10:12 Resp 18 10/10/24 10:12 BP 118/76 10/10/24 10:12 Pulse Ox 100 10/10/24 10:12 O2 Del Method Room Air 10/10/24 10:12 Allergies Allergy/AdvReac Type Severity Reaction Status Date / Time No Known Allergies Allergy Verified 10/10/24 10:11 Home Medications ?Medication ?Instructions ?Recorded ?Confirmed ?Type No Home Medications 08/29/24 09/25/24 History Patient hx anesthesia problems: none Family hx anesthesia problems: none Results Review: All pre-operative results and documents have been reviewed as part of the pre- operative evaluation. [facility] Past Medical History Medical History Ulcerative colitis Smoking Abnormal urination Surgical History Surgical History History of repair of ACL Family History Family History Father Family history of lung cancer Family history of heart disease in male family member before age 55 Other Cerebrovascular accident Family history of malignant neoplasm Social History Social History Smoking packs per day: 1 Smoking cigarettes per day: 20.0 Years smoked: 24 Smoking pack-years: 24.00 Smoking status: Former smoker Tobacco type: cigarettes Alcohol intake: former Substance use type: marijuana Other substance usage details: smoke from dispensary Last use: daily usage Do You Feel Safe in your Home?: Yes Lack of Transportation: No Lack of Food: Never True Current Housing: I Have Housing Concerned About Future Housing: No Difficulty Paying Gas/Electric Bills: No Difficulty Paying for Meds: No Currently Unemployed: No Education: High School Diploma/GED Living arrangements: alone Occupation/Education: occupation Additional occupation/education comments: [employer] Gender identity (if verbalized by the patient): Male Spiritual care concerns: No Agree to blood products: Yes Anes - Eval Final PreProcedure Day of Procedure 10/10/24 10:19 Patient weight: normal Heart: regular rate and rhythm Lungs: decreased breath sounds Airway: Mallampati scale class II Neurological: alert and oriented Last oral intake: >/= 8 hours ASA classification: III Emergent: no Anesthetic plan: proceed Anesthesia type and monitoring: general GIVS and standard monitoring Results Review: All pre-operative results and documents have been reviewed as part of the pre- operative evaluation. Informed Consent: The patient's anesthetic plan and its attendant risks and benefits were discussed with the patient/family/POA. Questions were solicited and answers provided to the satisfaction of the patient/family/POA.
[2024-10-10] MEDS: LACTATED RINGERS 1,000 ML 150 ML IV CONT (10:22)
--- NOTE | 2024-10-10 11:05 | PM.IMHP ---
H&P: HPI History of Present Illness Date/Time: 10/10/24 11:05 Chief Complaint: Diarrhea, intermittent rectal bleeding -history of ulcerative colitis Narrative: this patient was diagnosed with ulcerative colitis at age 21. For different reasons, especially insurance coverage, he was not taking any medication. He has gone to the emergency room mate times for diarrhea, urgency and abdominal pain. He is now referred for colonoscopy. Review of Systems Review of Systems: All systems reviewed & are unremarkable except as noted in HPI and below PMFSH Past Medical History Medical History (Updated 10/10/24 @ 11:07 by James Rhoades MD) Ulcerative colitis Smoking Abnormal urination Surgical History Surgical History History of repair of ACL Family History Family History Father Family history of lung cancer Family history of heart disease in male family member before age 55 Other Cerebrovascular accident Family history of malignant neoplasm Social History Social History Smoking packs per day: 1 Smoking cigarettes per day: 20.0 Years smoked: 24 Smoking pack-years: 24.00 Smoking status: Former smoker Tobacco type: cigarettes Alcohol intake: former Substance use type: marijuana Other substance usage details: smoke from dispensary Last use: daily usage Do You Feel Safe in your Home?: Yes Lack of Transportation: No Lack of Food: Never True Current Housing: I Have Housing Concerned About Future Housing: No Difficulty Paying Gas/Electric Bills: No Difficulty Paying for Meds: No Currently Unemployed: No Education: High School Diploma/GED Living arrangements: alone Occupation/Education: occupation Additional occupation/education comments: [employer] Gender identity (if verbalized by the patient): Male Spiritual care concerns: No Agree to blood products: Yes Meds Home Medications and Allergies Home Medications ?Medication ?Instructions ?Recorded ?Confirmed ?Type No Home Medications 08/29/24 09/25/24 History Allergies Allergy/AdvReac Type Severity Reaction Status Date / Time No Known Allergies Allergy Verified 10/10/24 10:11 Vital Signs Vital Signs - 24 hr 10/10/24 10:12 Temperature 98.3 F Pulse Rate 67 Respiratory Rate 18 Blood Pressure 118/76 Pulse Oximetry 100 Oxygen Delivery Room Air Exam Const: General: cooperative and healthy appearing Resp: Effort & Inspection: normal respiratory effort and able to speak in complete sentences Auscultation: clear to auscultation bilaterally Cardio: Rate: regular rate Rhythm: regular rhythm GI: Inspection: normal to inspection GI Palp: No No hepatosplenomegaly present Auscultation: normal bowel sounds Rectal Exam: deferred Skin: General skin exam: normal color Psych: Appearance: grossly normal Mental Status: mental status grossly normal Assessment and Plan Assessment and plan (1) Ulcerative colitis: Code(s): K51.90 - Ulcerative colitis, unspecified, without complications Status: Acute Assessment and Plan: The patient is deemed a good candidate for the procedure. Consent signed. Will proceed.
[2024-10-10] MEDS: SIMETHICONE ORAL SUSPENSION 20 MG/0.3 ML 30 ML BOTTLE 0.6 ML IRRIGATION (11:16)
[2024-10-10 11:25] VITALS: BP 109/62; PULSE 55; RESP 19; O2SAT 100
[2024-10-10 11:35] VITALS: BP 124/84; PULSE 55; RESP 22; O2SAT 100
== END 2024-10-10 11:54 | disposition home or self-care (01) ==
PROVIDERS: PCP Nurse Practitioner Family; Visit Provider Internal Medicine Gastroenterology
PROC: 0DJD8ZZ Inspection of Lower Intestinal Tract, Via Natural or Artificial Opening Endoscopic (ICD-10-PCS; CPT 45378; principal; 2024-10-10 11:30)
DX: K51.90 Ulcerative colitis, unspecified, without complications (principal); F12.90 Cannabis use, unspecified, uncomplicated; Z98.890 Other specified postprocedural states; Z87.891 Personal history of nicotine dependence; Z87.19 Personal history of other diseases of the digestive system; Z80.1 Family history of malignant neoplasm of trachea, bronchus and lung; Z82.49 Family history of ischemic heart disease and other diseases of the circulatory system
CPT/HCPCS: 45378; J2003; J2704; J7120

== ENCOUNTER 2024-12-12 07:35 | Emergency (ER) | payer OTHER, SELFPAY ==
--- NOTE | ~2024-12-12 | CT_ITS ---
EXAMINATION: CT abdomen pelvis w con, 12/12/2024 8:25 CDT HISTORY: LLQ abd pain, hx colitis COMPARISON: Comparison 07/25/2024. TECHNIQUE: CT scan of the abdomen and pelvis was performed with contrast. Isovue 300, 92cc injected IV. One or more of the following dose reduction techniques were used: automated exposure control, adjustment of the mA and/or kV according to patient size, use of iterative reconstruction technique. Unless otherwise stated, incidental findings do not require dedicated follow up imaging FINDINGS: CT abdomen: LUNG BASES: The lung bases are clear. The visualized portions of the heart and pericardium are unremarkable. LIVER: Unremarkable, liver contours intact, no lesions. SPLEEN: Unremarkable, no splenomegaly. KIDNEYS: Right Kidney: Unremarkable. No calculi. No hydronephrosis. Left Kidney: Unremarkable. No calculi. No hydronephrosis ADRENAL GLANDS: Unremarkable. PANCREAS: Unremarkable. GALLBLADDER/BILIARY: Unremarkable. No biliary dilatation. STOMACH AND ESOPHAGUS: Visualized stomach and esophagus within normal limits. BOWEL/MESENTERY: No colitis or diverticulitis. Minimal fecal content. Appendix not identified, no inflammation surrounding the cecum. Mesentery normal. Small bowel normal. ADENOPATHY/RETROPERITONEUM: No lymphadenopathy. AORTA/VASCULATURE: Normal caliber aorta. FREE FLUID OR FREE AIR: None. CT pelvis: SOLID ORGANS/REPRODUCTIVE: Unremarkable. BLADDER: Within normal limits. OSSEOUS STRUCTURES: No acute osseous abnormality.No suspicious lesions. OVERLYING SOFT TISSUES: Unremarkable. IMPRESSION: 1. No etiology identified to explain the patient's symptoms. Follow-up suggested if symptoms persist. Reviewed, dictated and finalized at location A. IMPRESSION: 1. No etiology identified to explain the patient's symptoms. Follow-up suggeste d if symptoms persist.
[2024-12-12 07:32] VITALS: BP 158/68; PULSE 68; RESP 18; TEMP 36.6; O2SAT 100
--- NOTE | 2024-12-12 07:48 | ED_ITS ---
HPI - Abdominal Pain General Chief Complaint: Abdominal Pain Stated Complaint: abd pain, n/v Time Seen by Provider: 12/12/24 07:36 History of Present Illness HPI narrative: This is a 39-year-old male with history of colitis and IBS-C who presents to the ED for abdominal pain. Patient states that for the past 4 days, he has had left lower quadrant left upper quadrant abdominal pain. He has been having nausea and vomiting. He states that on the 1st day he did have black emesis but since then has been stomach contents. He has had difficulty tolerating solids and liquids. He did have a colonoscopy 2 weeks ago and stated that he is scheduled for a endoscopy in a few weeks but he called the GI office yesterday and he was reportedly told to come to the ED today to be admitted to have the endoscopy done. Denies fevers, chills, changes in bowel movements. Related Data Allergies Allergy/AdvReac Type Severity Reaction Status Date / Time No Known Allergies Allergy Verified 12/12/24 07:49 Review of Systems 2 Review of Systems: Gen.: Denies fevers or chills Eyes: Denies eye pain or visual change ENT: Denies congestion Respiratory: Denies shortness of breath or cough CV: Denies chest pain or palpitations GI: As per HPI denies burning, urgency, frequency or hematuria Musculoskeletal: Denies back pain or muscle pain Neuro: Denies numbness, tingling, weakness or focal weakness Skin: Denies rash Except as documented, all other systems reviewed and negative PMFSH Past Medical History Medical History Ulcerative colitis Smoking Abnormal urination Surgical History Surgical History History of repair of ACL Family History Family History Father Family history of lung cancer Family history of heart disease in male family member before age 55 Other Cerebrovascular accident Family history of malignant neoplasm Social History Social History Smoking packs per day: 1 Smoking cigarettes per day: 20.0 Years smoked: 24 Smoking pack-years: 24.00 Smoking status: Former smoker Tobacco type: cigarettes Alcohol intake: former Alcohol use details: quit three years ago Substance use: current Substance use type: marijuana Last use: daily usage Do You Feel Safe in your Home?: Yes Lack of Transportation: No Lack of Food: Never True Current Housing: I Have Housing Concerned About Future Housing: No Difficulty Paying Gas/Electric Bills: No Difficulty Paying for Meds: No Currently Unemployed: No Education: High School Diploma/GED Living arrangements: with family Occupation/Education: occupation Additional occupation/education comments: [employer] Gender identity (if verbalized by the patient): Male Spiritual care concerns: No Agree to blood products: Yes Exam 2 Narrative: APPEARANCE: No acute distress, nontoxic, resting in bed EYES: EOMI HEENT: Normocephalic, atraumatic, OMM RESPIRATORY: No respiratory distress Clear to auscultation bilaterally with no rhonchi wheezing or rales. CARDIOVASCULAR: Regular rate and rhythm without murmurs rubs or gallops. ABDOMINAL: Diffuse tenderness to palpation with voluntary guarding MUSCULOSKELETAl: Moves all extremities. No clubbing, cyanosis or edema. NEURO: Awake and alert. Following commands, speech normal, no focal deficits SKIN:: Warm, dry. No rashes lesions or abrasions PSYCHIATRIC: Normal affect/mood, Course Vital Signs Vital signs: Vital Signs Temperature 98 F 12/12/24 07:32 Pulse Rate 68 12/12/24 07:32 Respiratory Rate 18 12/12/24 07:32 Blood Pressure 158/68 H 12/12/24 07:32 Pulse Oximetry 100 12/12/24 07:32 Oxygen Delivery Room Air 12/12/24 07:32 Temperature 98 F 12/12/24 07:32 Pulse Rate 78 12/12/24 09:42 Respiratory Rate 17 12/12/24 09:42 Blood Pressure 143/80 H 12/12/24 09:42 Pulse Oximetry 99 12/12/24 09:42 Oxygen Delivery Room Air 12/12/24 07:32 MDM - Abdominal Pain MDM Narrative Medical decision making narrative: 31-year-old male. History of colitis presented to the ED for abdominal pain, nausea vomiting. Under initial evaluation, patient was in mild distress, afebrile, hemodynamically stable. He had diffuse tenderness to palpation with significant voluntary guarding. CBC and CMP were without significant abnormalities. CT abdomen/pelvis showed no acute process. Patient was given Zofran and Toradol by EMS and his pain was slightly improved. He was given additional Haldol here in the ED for suspected cannabinoid hyperemesis and on re-evaluation he had near complete resolution his symptoms. Patient had reported that he was told to come here for an EGD so I reached out to DIVYA Molina, stated there was no plans for EGD today. Advised to call clinic today to clarify. Advised patient of this and was agreeable to this plan and will call the office today. Patient was given a prescription for Zofran. Patient was agreeable to this plan. Given strict return precautions. Differential Diagnosis Differential diagnosis: Likely abdominal pain, constipation, diverticulitis, gastroenteritis, pancreatitis and other (Cannabinoid hyperemesis) Medical Records Attestation: I reviewed the patient's medical records. Lab Data Attestation: I reviewed the patient's lab results. 12/12/24 07:53 12/12/24 07:53 Labs: Lab Results 12/12/24 12/12/24 Range/Units 07:53 09:03 WBC 8.3 (4.5-10.0) K/mm3 RBC 4.61 (4.6-6.20) M/mm3 Hgb 14.6 (14.0-18.0) g/dL Hct 42.1 (42.0-52.0) % MCV 91.3 (80-100) fl MCH 31.7 (26-34) pg MCHC 34.7 (32-36) g/dl RDW 11.6 (11.5-14.5) % Plt Count 238 (150-375) k/mm3 MPV 9.8 (7.4-10.4) fl Immature Gran % (Auto) 1.6 H (0-0.5) % Neut % (Auto) 83.3 H (45.5-73.1) % Lymph % (Auto) 10.9 L (18.3-44.2) % [place] % (Auto) 3.9 (2.6-8.5) % Eos % (Auto) 0.1 (0-4.4) % Baso % (Auto) 0.2 (0.2-1.2) % Lymph # (Auto) 0.90 (0.9-3.2) K/mm3 [place] # (Auto) 0.3 (0.1-0.6) K/mm3 Eos # (Auto) 0.0 (0-0.3) K/mm3 Baso # (Auto) 0.0 (0.0-0.1) K/mm3 Abs Immat Gran (auto) 0.13 H (0.00-0.031) K/mm3 Absolute Neuts (auto) 6.9 H (1.3-6.7) K/mm3 Absolute Nucleated RBC 0.000 (0.0-0.012) K/mm3 Nucleated RBC % 0.0 (0.0-0.2) % Sodium 139 (137-145) mmol/L Potassium 3.6 (3.4-5.0) mmol/L Chloride 103 (98-107) mmol/L Carbon Dioxide 26 (22-30) mmol/L Anion Gap 10 (4-12) mmol/L BUN 14 (9-20) mg/dL Creatinine 0.68 L (0.7-1.3) mg/dL Estim Creat Clear Calc 114 ml/min Estimated GFR > 60 (59 - ) Glucose 120 H (65-110) mg/dL Calcium 9.1 (8.4-10.2) mg/dL Total Bilirubin 1.1 (0.2-1.3) mg/dL AST 26 (17-59) U/L ALT 23 (6-50) U/L Alkaline Phosphatase 77 (38-126) U/L Total Protein 7.2 (6.3-8.2) g/dL Albumin 4.6 (3.5-5.1) g/dL Lipase 111 (23-300) U/L Urine Color Yellow (Yellow) Urine Appearance Cloudy H (Clear) Urine pH 8.0 (5.0-9.0) Ur Specific [place] 1.027 (1.001-1.035) Urine Protein Negative (Negative) mg/dL Urine Glucose (UA) Negative (Negative) mg/dL Urine Ketones Negative (Negative) mg/dL Ur Blood (Man) Negative (Negative) Urine Nitrate Negative (Negative) Urine Bilirubin Negative (Negative) Urine Urobilinogen 0.2 (<2.0) mg/dL Leukocyte Esterase Rfl Negative (Negative) KYRA/UL Urine RBC 0-2 (0-2) /hpf Urine WBC 0-5 (0-3) /hpf Ur Squamous Epith Cells None seen (Few) /hpf Urine Bacteria None seen /hpf Urine Casts 0-2 Urine Opiates Screen Positive A (Negative) Urine Methadone Screen Negative (Negative) Ur Barbiturates Screen Negative (Negative) Ur Phencyclidine Scrn Negative (Negative) Ur Amphetamine Screen Negative (Negative) U Benzodiazepines Scrn Negative (Negative) Urine Cocaine Screen Negative (Negative) U Cannabinoids Screen Positive A (Negative) Imaging Data Radiologist's impression: ITS Impressions Abdomen/Pelvis CT 12/12/24 08:37 IMPRESSION: 1. No etiology identified to explain the patient's symptoms. Follow-up suggested if symptoms persist. Discharge Plan Discharge Clinical Impression: Abdominal pain Qualifiers: Abdominal location: generalized Qualified Code(s): R10.84 - Generalized abdominal pain Vomiting Qualifiers: Vomiting type: unspecified Nausea presence: unspecified Qualified Code(s): R 11.10 - Vomiting, unspecified Patient Disposition: Home Condition: Stable Instructions: Antibiotic Form, Abdominal Pain (ED) Additional Instructions: Take Zofran as prescribed. Call GI office today to clarify instructions. Return the ED for any new or worsening symptoms. Patient Language: Albanian Prescriptions: New ondansetron 4 mg tablet,disintegrating 4 mg PO Q8H PRN (Reason: nausea and vomiting) Qty: 14 0RF No Action omeprazole 40 mg capsule,delayed release(DR/EC) 40 mg PO DAILY Qty: 30 2RF Linzess 145 mcg capsule 145 mcg PO DAILY Qty: 30 2RF Follow-up/Referrals: James Rhoades MD [Physician, Gastroenterology] Britney Coleman APRN [Primary Care Provider, Internal Medicine] Stand Alone Forms: Work/School Release IP
--- OUTSIDE RECORDS SUMMARY | 2024-12-12 07:49 | XMS_ITS | Clinical Summary ---
Author Organization [facility] [place] [address] [facility] Address [address] [place] [address] Care Team Providers Care Arbor Press Operator Name Role Phone No, Physician Primary Care Provider [phone] Allergies No known active allergies Medications ondansetron [...] on file Legal Sex Male 11:21 PM EIGHT SECTION BLOWER Gender Identity Not on file Sexual Orientation Not on file Obstetrics History Last Filed Vital Signs Vital Sign Reading Time Taken Comments Blood Pressure 155/78 03/05/2024 10:00 PM EIGHT SECTION BLOWER Pulse 70 03/05/2024 10:00 PM EIGHT SECTION BLOWER Temperature 37 C (98.6 F) 03/05/2024 3:54 PM EIGHT SECTION BLOWER Respiratory Rate 18 03/05/2024 10:00 PM EIGHT SECTION BLOWER Oxygen Saturation 100% 03/05/2024 10:00 PM EIGHT SECTION BLOWER Inhaled Oxygen Concentration - - Weight 73.6 kg (162 lb 4.1 oz) 03/05/2024 4:18 P M EIGHT SECTION BLOWER Height 175.3 cm (5' 9) 01/24/2023 1:12 PM CDT Body Mass Index 23.96 01/24/2023 1:12 PM CDT Plan of Treatment Health Maintenance Due Date Last Done Comments Hepatitis C Screening 1986 DTaP/Tdap/Td Vaccine (1 - Tdap) 1997 Varicella Vaccines (1 of 2 - 13+ 2-dose series) 1999 Regular Well Visit/Exam 18-64 2004 HPV Vaccines (1 - 3-dose SCD M series) 2013 Covid-19 Vaccine ( - 2023-2 5 season) 2023 08/04/2020, 07/14/2020 Depression Screening 12/22/2023 12/21/2022 Influenza Vaccine (#1) 2024 Hepatitis B Screening Completed 09/06/1996 , 05/17/1996, 03/29/1996 Pneumococcal vaccine <65 Aged Out No longer eligible based on patient's age to complete this topic Insurance [facility] [employer]NA [facility] AETNA [facility] Care Teams Arbor Press Operator Relationship Specialty Start Date End Date No, Physician PCP - General 03/05/24
--- OUTSIDE RECORDS SUMMARY | 2024-12-12 07:49 | XMS_ITS | Patient Health Record ---
Author Organization [facility] [employer] Address [address] [facility] [address] [place] [address] Care Team Providers Care Process Safety Engineering Technologist Name Role Phone Rigoberto Iqbal Unavailable [phone] Reason For Referral No Information Plan Of Treatment No Information
[2024-12-12] MEDS: SODIUM CHLORIDE 0.9% IV 1,000 ML 999 ML IV CONT (07:51)
[2024-12-12] MEDS: MORPHINE SULFATE (*CRX) 4 MG/ML INJ IV PUSH (07:51)
[2024-12-12 08:02] LABS: Hematocrit 42.1 % (42.0-52.0); Hemoglobin 14.6 g/dL (14.0-18.0); Immature Granulocyte Percent A 1.6 % (0-0.5); Lymphocytes Absolute Auto 0.90 K/mm3 (0.9-3.2); Mean Corpuscular HGB Conc 34.7 g/dl (32-36); Mean Corpuscular Hemoglobin 31.7 pg (26-34); Mean Corpuscular Volume 91.3 fl (80-100); Nucleated Red Blood Cells Absolute Auto 0.000 K/mm3 (0.0-0.012); Nucleated Red Blood Cells Perc 0.0 % (0.0-0.2); Platelet Count Result 238 k/mm3 (150-375); Red Blood Count 4.61 M/mm3 (4.6-6.20); White Blood Count 8.3 K/mm3 (4.5-10.0)
[2024-12-12] MEDS: HALOPERIDOL LACTATE 5 MG/ML VIAL IV PUSH (08:03)
--- NOTE | 2024-12-12 08:07 | PC.NURSE ---
pt states he is unable to urinate at this time, but is refusing catheter. states he will hit his call light when he can go.
[2024-12-12 08:22] LABS: Alanine Aminotransferase 23 U/L (6-50); Albumin Level 4.6 g/dL (3.5-5.1); Alkaline Phosphatase 77 U/L (38-126); Anion Gap 10 mmol/L (4-12); Aspartate Amino Transferase 26 U/L (17-59); Bilirubin,Total 1.1 mg/dL (0.2-1.3); Blood Urea Nitrogen 14 mg/dL (9-20); Calcium 9.1 mg/dL (8.4-10.2); Carbon Dioxide 26 mmol/L (22-30); Chloride 103 mmol/L (98-107); Estimated CRCL calculation 114 ml/min; Estimated Glomerular Filt Rate > 60; Glucose 120 mg/dL (65-110); Lipase 111 U/L (23-300); Potassium 3.6 mmol/L (3.4-5.0); Sodium 139 mmol/L (137-145); Total Protein 7.2 g/dL (6.3-8.2)
[2024-12-12 09:14] LABS: Add Urine Microscopic? YES; Appearance Urine Cloudy (Clear); Glucose Urine UA Negative (Negative); Leukocyte Esterase Ur Negative LEU/UL (Negative); Nitrate Urine Negative (Negative); Non Pathogenic Casts 0-2; Specific Grav Ur 1.027 (1.001-1.035)
[2024-12-12 09:33] LABS: Cannabinoid Screen Urine Positive (Negative)
[2024-12-12 09:42] VITALS: BP 143/80; PULSE 78; RESP 17; O2SAT 99
== END 2024-12-12 09:44 | disposition home or self-care (01) ==
PROVIDERS: Emergency Provider Student in an Organized Health Care Education/Training Program; PCP Nurse Practitioner Family
DX: R10.84 Generalized abdominal pain (principal); R11.10 Vomiting, unspecified
CPT/HCPCS: 36415; 74177; 80053; 80307; 81001; 83690; 85025; 96361; 96374; 96375; 99284; J1630; J2270; J7030; Q9967

== ENCOUNTER 2024-12-13 08:28 | Day surgery (SDC) | payer OTHER, SELFPAY ==
[2024-12-11 12:53] VITALS: BMI 25.7
--- OUTSIDE RECORDS SUMMARY | 2024-12-13 08:31 | XMS_ITS | Patient Health Record ---
Author Organization [facility] [employer] Address [address] [facility] [address] [place] [address] Care Team Providers Care Deicer Finisher Name Role Phone Rigoberto Iqbal Unavailable [phone] Reason For Referral No Information Plan Of Treatment No Information
--- OUTSIDE RECORDS SUMMARY | 2024-12-13 08:31 | XMS_ITS | Clinical Summary ---
Author Organization [facility] Address [facility] [place] [address] Care Team Providers Care Evening Sitter Name Role Phone Jersey Aceves MD Primary Care Provider [phone] Allergies No known active allergies Medications ondansetron [...] Date Resolved Date Colitis 08/24/2020 08/26/2020 Immunizations Immunization Administration Dates Next Due Hepatitis B Pediatric [...] 10:03 AM CDT Height 162.6 cm (5' 4) 10/03/2020 10:03 AM CDT Body Mass Index 23.17 10/03/2020 10:03 AM CDT Plan of Treatment Health Maintenance Due Date Last Done Comments DTaP, Tdap and Td Vaccines ( 1 - Tdap) 2005 HPV Vaccines (1 - 3-dose SCD M series) 2013 Annual Physical 09/03/2021 09/03/2020 COVID-19 Vaccine (2023-2 5 season) 2023 Hepatitis B Vaccines Completed 09/06/1996, 05/17/1996, 03/29/1996 Hepatitis C Completed 09/18/2020 Meningococcal B Vaccine Aged Out No l onger eligible based on patient's age to complete this topic Meningococcal Vaccine Aged Out No luiza mehrdad eligible based on patient's age to complete this topic Pneumococcal Vaccine: Pediatrics (0 to 5 Years) and At-Risk Patients (6 to 49 Years) Aged Out No longer eligible b [...] VE NON-REACT MIRELA 09/18/2020 11:18 PM CDT [facility] Comment: ANTIBODIES TO HCV NOT DETECTED. DOES NOT EXCLUDE THE POSSIBILITY OF EXPOSURE TO HCV. 09/18/2020 7:06 AM CDT Jersey Aceves MD LABORATORY Final Res ult [facility] [address] [place] [address], [place] [phone] [id number] from Last 3 Months or Most Recently Relevant to Health Maintenance Insurance [facility] Advance Directives * Full Code (Latest Code Status on File) Date Activated Date Inactivated Comments 08/24/2020 5:08 PM 08/26/2020 1:24 PM Care Teams Evening Sitter Relationship Specialty Start Date End Date Jersey Aceves MD PCP - General FAMILY PRACTICE 07/09/20
--- OUTSIDE RECORDS SUMMARY | 2024-12-13 08:31 | XMS_ITS | Clinical Summary ---
Author Organization [facility] [place] [address] [facility] Address [address] [place] [address] Care Team Providers Care Product Development Worker Name Role Phone No, Physician Primary Care Provider [phone] Allergies No known active allergies Medications ondansetron [...] on file Legal Sex Male 11:21 PM PROBE OPERATOR Gender Identity Not on file Sexual Orientation Not on file Obstetrics History Last Filed Vital Signs Vital Sign Reading Time Taken Comments Blood Pressure 155/78 03/05/2024 10:00 PM PROBE OPERATOR Pulse 70 03/05/2024 10:00 PM PROBE OPERATOR Temperature 37 C (98.6 F) 03/05/2024 3:54 PM PROBE OPERATOR Respiratory Rate 18 03/05/2024 10:00 PM PROBE OPERATOR Oxygen Saturation 100% 03/05/2024 10:00 PM PROBE OPERATOR Inhaled Oxygen Concentration - - Weight 73.6 kg (162 lb 4.1 oz) 03/05/2024 4:18 P M PROBE OPERATOR Height 175.3 cm (5' 9) 01/24/2023 1:12 [...] age to complete this topic Insurance AETNA [facility] AETNA [facility] AETNA [facility] Care Teams Product Development Worker Relationship Specialty Start Date End Date No, Physician PCP - General 03/05/24
[2024-12-13 09:14] VITALS: BP 160/85; PULSE 70; RESP 16; TEMP 36.6; O2SAT 100; BMI 24.3
[2024-12-13] MEDS: LACTATED RINGERS 1,000 ML 150 ML IV CONT (09:22)
[2024-12-13] MEDS: ONDANSETRON INJ 4 MG/2 ML VIAL IV PUSH (10:00)
--- NOTE | 2024-12-13 10:02 | P.HP_ITS ---
History of Present Illness History of Present Illness Consent: Risks, benefits, and alternatives have been discussed and questions answered. Patient agrees to proceed with procedure. Chief complaint: Gastro-esophageal reflux disease without esophagit Narrative: Harpal Sterling is a 39 year old male here for egd, intermittent n/v every 1-2 months, CT scan negative, also uses medical marijuana Review of Systems Review of Systems: All systems reviewed & are unremarkable except as noted in HPI and below PMFSH Past Medical History Medical History (Updated 12/13/24 @ 10:03 by Antony Zavala MD) Nausea and vomiting in adult Ulcerative colitis Smoking Abnormal urination Surgical History Surgical History History of repair of ACL Family History Family History Father Family history of lung cancer Family history of heart disease in male family member before age 55 Other Cerebrovascular accident Family history of malignant neoplasm Social History Social History Smoking packs per day: 1 Smoking cigarettes per day: 20.0 Years smoked: 24 Smoking pack-years: 24.00 Smoking status: Former smoker Tobacco type: cigarettes Alcohol intake: former Alcohol use details: quit three years ago Substance use: current Substance use type: marijuana Other substance usage details: smoke from dispensary Last use: daily usage Do You Feel Safe in your Home?: Yes Lack of Transportation: No Lack of Food: Never True Current Housing: I Have Housing Concerned About Future Housing: No Difficulty Paying Gas/Electric Bills: No Difficulty Paying for Meds: No Currently Unemployed: No Education: High School Diploma/GED Living arrangements: with family Occupation/Education: occupation Additional occupation/education comments: [employer] Gender identity (if verbalized by the patient): Male Spiritual care concerns: No Agree to blood products: Yes Meds Home Medications and Allergies Home Medications ?Medication ?Instructions ?Recorded ?Confirmed ?Type omeprazole 40 mg capsule,delayed 40 mg PO DAILY #30 ca ps 10/23/24 12/13/24 Rx release linaclotide 145 mcg capsule 145 mcg PO DAILY #30 caps 11/29/24 12/13/24 Rx (Linzess) ondansetron 4 mg disintegrating 4 mg PO Q8H PRN nausea and 12/12/24 Rx tablet vomiting #14 tabs Allergies Allergy/AdvReac Type Severity Reaction Status Date / Time No Known Allergies Allergy Verified 12/13/24 09:13 Vital Signs Vital Signs - 24 hr 12/13/24 09:14 Temperature 97.8 F Pulse Rate 70 Respiratory Rate 16 Blood Pressure 160/85 H Pulse Oximetry 100 Oxygen Delivery Room Air Exam Const: General: comfortable and no acute distress HENMT: Face/Nose/Sinus: Normal nares present Eyes: General: appearance normal, both eyes and all related structures Neck: Neck: no JVD Resp: Auscultation: clear to auscultation bilaterally Cardio: Rate: regular rate Rhythm: regular rhythm GI: Inspection: non-distended GI Palp: Yes Soft to palpation Skin: General skin exam: normal color Neuro: Speech: normal speech Extrem: General: normal to inspection Psych: Mental Status: mental status grossly normal Assessment and Plan Assessment and plan (1) Nausea and vomiting in adult: Code(s): R11.2 - Nausea with vomiting, unspecified Status: Acute Assessment and Plan: egd with bx (2) Chronic GERD: Code(s): K21.9 - Gastro-esophageal reflux disease without esophagitis Status: Acute Assessment and Plan: started 1 week ago on ppi
[2024-12-13] MEDS: BENZOCAINE (*SP) 60 ML SPRAY CAN (HURRICAINE) 1 SPRAY MUCOUS MEM (10:08)
--- NOTE | 2024-12-13 10:18 | S_PTH ---
PATIENT: Harpal Sterling LOC: [facility]#:[id number] AGE/SX: 39/M ROOM: RE12/13/[address]: Antony Zavala MD : 1985 BED: DIS: 12/13/2024 SPEC #: [id number] RECD: 12/13/24 11:39 STATUS: CHUY REQ #: [id number] TIMOTHY: 12/13/24 10:[address]: Antony Zavala DEPT: [facility] Surgical RECD BY: Stephanie Ocasio ENTERED: 12/13/24 11:40 SP TYPE: Surgical OTHR DR: Britney Coleman, ATIYA Tissues: A - Esophageal Biopsy B - Gastric Biopsy C - Small Bowel Bx Procedures: Hematoxylin and Eosin Stain Gross and Microscopic Level 4
[2024-12-13 10:20] VITALS: BP 146/83; PULSE 74; RESP 20; O2SAT 100
[2024-12-13 10:30] VITALS: BP 137/32; PULSE 86; RESP 17; O2SAT 100
[2024-12-13 10:40] VITALS: BP 130/74; PULSE 82; RESP 18; O2SAT 100
--- NOTE | 2024-12-24 15:04 | WPDANESEPPF ---
Anes - Initial Pre Proc Eval Procedure: Operation Date: 12/13/24 10:15 Proposed Procedures p Esophagogastroduodenoscopy - Antony Zavala MD Date/Time: 12/24/24 15:04 Surgeon: Antony Zavala MD Pre Op Diagnosis: Gastro-esophageal reflux disease without esophagit Patient Data Age: 39 Gender: M Height: 1.7 m Weight: 70.6 kg Last Vital Signs Temp 36.6 C 12/13/24 09:14 Pulse 82 12/13/24 10:40 Resp 18 12/13/24 10:40 BP 130/74 12/13/24 10:40 Pulse Ox 100 12/13/24 10:40 O2 Del Method Room Air 12/13/24 10:40 Allergies Allergy/AdvReac Type Severity Reaction Status Date / Time No Known Allergies Allergy Verified 12/13/24 09:13 Home Medications ?Medication ?Instructions ?Recorded ?Confirmed ?Type omeprazole 40 mg capsule,delayed 40 mg PO DAILY #30 caps 10/23/24 12/13/24 Rx release linaclotide 145 mcg capsule 145 mcg PO DAILY #30 caps 11/29/24 12/13/24 Rx (Linzess) ondansetron 4 mg disintegrating 4 mg PO Q8H PRN nausea and 12/12/24 Rx tablet vomiting #14 tabs Patient hx anesthesia problems: none Family hx anesthesia problems: none Results Review: All pre-operative results and documents have been reviewed as part of the pre-operative evaluation. [facility] Past Medical History Medical History (Updated 12/13/24 @ 10:30 by Antony Zavala MD) Marijuana use Nausea and vomiting in adult Ulcerative colitis Smoking Abnormal urination Surgical History Surgical History History of repair of ACL Family History Family History Father Family history of lung cancer Family history of heart disease in male family member before age 55 Other Cerebrovascular accident Family history of malignant neoplasm Social History Social History Smoking packs per day: 1 Smoking cigarettes per day: 20.0 Years smoked: 24 Smoking pack-years: 24.00 Smoking status: Former smoker Tobacco type: cigarettes Alcohol intake: former Alcohol use details: quit three years ago Substance use: current Substance use type: marijuana Other substance usage details: smoke from dispensary Last use: daily usage Do You Feel Safe in your Home?: Yes Lack of Transportation: No Lack of Food: Never True Current Housing: I Have Housing Concerned About Future Housing: No Difficulty Paying Gas/Electric Bills: No Difficulty Paying for Meds: No Currently Unemployed: No Education: High School Diploma/GED Living arrangements: with family Occupation/Education: occupation Additional occupation/education comments: [employer] Gender identity (if verbalized by the patient): Male Spiritual care concerns: No Agree to blood products: Yes Anes - Eval Final PreProcedure Day of Procedure 12/24/24 15:04 Patient weight: normal Heart: regular rate and rhythm Lungs: clear to auscultation and normal air movement Airway: Mallampati scale class II Neurological: alert and oriented Last oral intake: >/= 8 hours ASA classification: III Emergent: no Anesthetic plan: proceed Anesthesia type and monitoring: general GIVS and standard monitoring Results Review: All pre-operative results and documents have been reviewed as part of the pre-operative evaluation. Informed Consent: The patient's anesthetic plan and its attendant risks and benefits were discussed with the patient/family/POA. Questions were solicited and answers provided to the satisfaction of the patient/family/POA.
== END 2024-12-13 10:40 | disposition home or self-care (01) ==
PROVIDERS: PCP Nurse Practitioner Family; Referring Provider Nurse Practitioner Family; Visit Provider Internal Medicine Gastroenterology
PROC: 0DJ08ZZ Inspection of Upper Intestinal Tract, Via Natural or Artificial Opening Endoscopic (ICD-10-PCS; CPT 43239; principal; 2024-12-13 10:15)
DX: K21.9 Gastro-esophageal reflux disease without esophagitis (principal); F12.90 Cannabis use, unspecified, uncomplicated; Z98.890 Other specified postprocedural states; Z87.891 Personal history of nicotine dependence; Z87.19 Personal history of other diseases of the digestive system; Z80.1 Family history of malignant neoplasm of trachea, bronchus and lung; Z82.49 Family history of ischemic heart disease and other diseases of the circulatory system
CPT/HCPCS: 43239; 88305; J2003; J2405; J2704; J7120

== ENCOUNTER 2024-12-27 08:02 | Outpatient (CLI) | payer OTHER, SELFPAY ==
--- NOTE | ~2024-12-27 | NM_ITS ---
EXAM: NM gastric emptying study DATE: 12/27/2024 12:39 INDICATION: Nausea with vomiting TECHNIQUE: A gastric emptying study was performed using the methodology of Javy BRANCH, et al. J Nucl Med 2007; 48:568-572. The patient was given a meal consisting of 2 scrambled eggs labeled with 0.998 mCi Tc-99m sulfur colloid, 2 slices of toast, two packages of jam, and approximately 120 mL of water. Simultaneous anterior and posterior 1-min images of the abdomen were obtained with the patient supine at multiple time points over a total period of 4 hours. The geometric mean of anterior and posterior views was determined, and the percentage retention was calculated for each time point. COMPARISON: None. FINDINGS: Gastric retention of the radiotracer-labeled meal was 33%, 20%, and 1% at the 1- hour, 2-hour, and 4-hour time points, respectively. With this technique, apparent rapid gastric emptying is suggested by <30% gastric retention at 1 hour. Delayed gastric emptying is defined by gastric retention of >90% at 1 hour, >60% retention at 2 hours, or >10% retention at 4 hours. IMPRESSION: 1. Normal gastric emptying. Reviewed, dictated and finalized at location A. IMPRESSION: 1. Normal gastric emptying.
--- OUTSIDE RECORDS SUMMARY | 2024-12-27 08:29 | XMS_ITS | Clinical Summary ---
Author Organization [facility] [place] [address] [facility] Address [address] [place] [address] Care Team Providers Care Customer Program Manager Name Role Phone No, Physician Primary Care Provider [phone] Allergies No known active allergies Medications ondansetron [...] on file Legal Sex Male 11:21 PM [employer] Gender Identity Not on file Sexual Orientation Not on file Obstetrics History Last Filed Vital Signs Vital Sign Reading Time Taken Comments Blood Pressure 155/78 03/05/2024 10:00 PM [employer] Pulse 70 03/05/2024 10:00 PM [employer] Temperature 37 C (98.6 F) 03/05/2024 3:54 PM [employer] Respiratory Rate 18 03/05/2024 10:00 PM [employer] Oxygen Saturation 100% 03/05/2024 10:00 PM [employer] Inhaled Oxygen Concentration - - Weight 73.6 kg (162 lb 4.1 oz) 03/05/2024 4:18 P M [employer] Height 175.3 cm (5' 9) 01/24/2023 1:12 PM CDT Body Mass Index 23.96 01/24/2023 1:12 PM CDT Plan of Treatment Health Maintenance Due Date Last Done Comments Hepatitis C Screening 1986 DTaP/Tdap/Td Vaccine (1 - Tdap) 1997 Varicella Vaccines (1 of 2 - 13+ 2-dose series) 1999 Regular Well Visit/Exam 18-64 2004 HPV Vaccines (1 - 3-dose SCD M series) 2013 Depression Screening 12/22/2023 12/21/2022 Covid-19 Vaccine (3 - 2024-2 6 season) 2024 08/04/2020, 07/14/2020 Influenza Vaccine (#1) 2024 Hepatitis B Screening Completed 09/06/1996 , 05/17/1996, 03/29/1996 Pneumococcal vaccine <65 Aged Out No longer eligible based on patient's age to complete this topic Insurance [facility] [facility] Care Teams Customer Program Manager Relationship Specialty Start Date End Date No, Physician PCP - General 03/05/24
--- OUTSIDE RECORDS SUMMARY | 2024-12-27 08:29 | XMS_ITS | Patient Health Record ---
Author Organization [facility] [employer] Address [address] [facility] [address] [facility] [address] [place] [address] Care Team Providers Care Combiner Operator Name Role Phone Rigoberto Iqbal Unavailable [phone] Reason For Referral No Information Plan Of Treatment No Information
== END 2024-12-27 08:03 | disposition home or self-care (01) ==
LOC: ANHIMG 08:08
PROVIDERS: PCP Nurse Practitioner Family; Visit Provider Internal Medicine Gastroenterology
DX: R11.2 Nausea with vomiting, unspecified (principal); F12.90 Cannabis use, unspecified, uncomplicated
CPT/HCPCS: 78264; A9541